=== PATIENT | male | born 1955 | race Caucasian/White ===

== ENCOUNTER 2018-04-03 01:38 | Inpatient (IN) | payer OTHER ==
[~2018-04-03] VITALS: Ht 172.7 cm; Wt 106.3 kg
[2018-04-03 02:52] LABS: BILIRUBIN,URINE NEGATIVE (NEGATIVE); CLARITY,URINE CLOUDY (CLEAR); COLOR,URINE STRAW (YELLOW); KETONES,URINE NEGATIVE (NEGATIVE); LEUKOCYTE ESTERASE ,URINE NEGATIVE (NEGATIVE); NITRITE,URINE NEGATIVE (NEGATIVE); PROTEIN,URINE DIPSTICK NEGATIVE (NEGATIVE); URINE UROBILINOGEN 0.2 mg/dL (0.2 - 1)
[2018-04-03 02:53] LABS: BACTERIA,URINE FEW /HPF; EPITHELIAL CELLS,URINE FEW /LPF; RBC,URINE >50 /HPF (0-5); RENAL EPITHELIAL CELLS,URINE FEW; TRANSITIONAL EPI CELLS,URINE FEW; WBC,URINE (MAN) 21-50 /HPF (0-5)
[2018-04-03 03:42] LABS: BASOPHILS % 0.3 % (0.0-1.0); EOSINOPHILS % 0.2 % (0.0-6.0); HEMATOCRIT 52.5 % (38.2-49.6); HEMOGLOBIN 17.2 g/dL (14.0-18.0); LYMPHOCYTES # (AUTO) 1.6 (1.0-3.2); LYMPHOCYTES % 13.5 % (18.0-39.1); MEAN CORPUSCULAR HGB CONC 32.8 g/dL (31-35); MEAN CORPUSCULAR VOLUME 91.6 fL (81-99); MONOCYTES # (AUTO) 0.7 (0.2-0.8); MONOCYTES % 5.8 % (4.4-11.3); NEUTROPHILS # (AUTO) 9.7 (2.1-6.9); NEUTROPHILS % 79.8 % (38.7-80.0); PLATELET COUNT 181 x10e3/uL (140-360); RED BLOOD COUNT 5.73 x10e6/uL (4.3-5.7); RED CELL DISTRIBUTION WIDTH 13.4 % (11.7-14.4)
[2018-04-03 03:52] LABS: INR 1.23; PARTIAL THROMBOPLASTIN TIME 28.6 seconds (23.8-35.5); PROTHROMBIN TIME 16.6 seconds (11.9-14.5)
[2018-04-03 03:59] LABS: ALBUMIN 3.7 g/dL (3.5-5.0); ALBUMIN/GLOBULIN RATIO 1.2 (0.8-2.0); CALCIUM 10.6 mg/dL (8.4-10.2); CREATININE, SERUM 1.66 mg/dL (0.72-1.25)
--- NOTE | 2018-04-03 04:40 | Diagnostic Imaging Report ---
EXAM: CT Abdomen and Pelvis WITHOUT contrast INDICATION: stone protocol, hematuria COMPARISON: None. TECHNIQUE: Abdomen and pelvis were scanned utilizing a multidetector helical scanner from the lung base to the pubic symphysis without administration of IV contrast. Absence of intravenous contrast decreases sensitivity for detection of focal lesions and vascular pathology. Coronal and sagittal reformations were obtained. Routine protocol was performed. IV CONTRAST: None ORAL CONTRAST: Water COMPLICATIONS: None RADIATION DOSE: Total DLP: 805.9 mGy*cm Estimated effective dose: (DLP x 0.015 x size factor) mSv Dose modulation, iterative reconstruction, and/or weight based adjustment of the mA/kV was utilized to reduce the radiation dose to as low as reasonably achievable. FINDINGS: LINES and TUBES: None. LOWER THORAX: Unremarkable HEPATOBILIARY: No focal hepatic lesions. No biliary ductal dilation. GALLBLADDER: No radio-opaque stones or sludge. No wall thickening. SPLEEN: No splenomegaly. PANCREAS: No focal masses or ductal dilatation. ADRENALS: Left adrenal 1.4 cm myelolipoma. No right adrenal nodules KIDNEYS/URETERS: Left kidney: Chronic appearing severe left hydronephrosis with transition at the ureteropelvic junction. There is left renal cortical thinning and atrophy. Mild left peripelvic stranding is noted. Thin linear 1.3 cm long 0.3 cm wide calcification along the posterior renal pelvis, adjacent to a possible triangular shaped 1.9 x 1.5 cm of thickening measuring 35 HU (series 3 image 97). Inferior pole 0.2 cm parenchymal calcification. Interval region 1.3 cm cyst. Right kidney: Right extrarenal pelvis. Superior pole nonobstructing 2 mm calculus. Right renal cysts measuring up to 2.4 cm. GI TRACT: No abnormal distention, wall thickening, or evidence of bowel obstruction. 3.4 cm duodenal diverticulum along the second segment. There are diverticula within the colon without evidence of diverticulitis. Appendix is normal. PELVIC ORGANS/BLADDER: Unremarkable. LYMPH NODES: No lymphadenopathy. VESSELS: There is mild atherosclerotic disease in the aorta and major arterial branches. PERITONEUM / RETROPERITONEUM: No free air or fluid. BONES: There are degenerative changes in the lumbar spine. SOFT TISSUES: Large indirect fat-containing bilateral inguinal hernias. Skin thickening in the left anterior abdominal wall. Fat-containing umbilical hernia. IMPRESSION: 1. Severe left hydronephrosis likely secondary to chronic UPJ obstruction. 2. Mild left peripelvic stranding may suggest possible pyelitis. Recommend correlation with urinalysis. 3. Soft tissue attenuating 1.9 cm area within the left renal pelvis. Given hematuria, this may represent clot or underlying urothelial lesion. Consider correlation with CT urogram. 4. Right nephrolithiasis. 5. Left adrenal myelolipoma. 6. Colonic diverticulosis. 7. Additional incidental findings as above. Signed by: DR. Larry Meeks MD on 04/03/2018 4:37 AM
[2018-04-03] MEDS ORDERED: DEXTROSE 50% SYRINGE 50 ML IV PRN (05:45)
[2018-04-03] MEDS ORDERED: ONDANSETRON HCL INJ 2 MG/ML VIAL IV PRN (05:45)
[2018-04-03] MEDS ORDERED: SODIUM CHLORIDE FLUSH 10 ML SYR INJ PRN (05:45)
[2018-04-03] MEDS: CEFTRIAXONE SOD 1 GM VIAL IV SCH (06:10)
--- OUTSIDE RECORDS SUMMARY | 2018-04-03 06:40 | XMS REPORT ---
Author Author [facility] Address Unknown Phone Unavailable Care Team Providers Care Field Spec Name Role Phone Tresa ESCAMILLA Unavailable Unavailable Problems This patient has no known problems. Allergies, Adverse Reactions, Alerts This patient has no known allergies or adverse reactions. Medications This patient has no known medications. Results Test Description Test Time Test Comments Text Results Atomic Results Result Comments CT ABDOMEN/PELVIS WO 2018-04-03 04:22:00 [place] [id number] Patient Name: HERNAN HODGE MR #: [id number] : 1955 Age/Sex: 62/M Req #: [id number] Adm Physician: Ordered by: BRUNO ESCAMILLA MD Report #: [id number] Location: ER Room/Bed: Procedure: [id number] CT/CT ABDOMEN/PELVIS WO Exam Date: 04/03/18 Exam Time: 0343 REPORT STATUS: Signed EXAM: CT Abdomen and Pelvis WITHOUT contrast I NDICATION: stone protocol, hematuria COMPARISON: None. TECHNIQUE: Abdomen and pelvis were scanned utilizing a multidetector helical scanner from the lung base to the pubic symphysis without administration of IV contrast. Absence of intravenous contrast decreases sensitivity for detection of focal lesions and vascular pathology. Coronal and sagittal reformations were obtained. Routine protocol was performed. IV CONTRAST: None ORAL CONTRAST: Water COMPLICATIONS: None RADIATION DOSE: Total DLP: 805.9 mGy*cm Estimated effective dose: (DLP x 0.015 x size factor) mSv Dose modulation, iterative reconstruction, and/or weight based adjustment of the mA/kV was utilized to reduce the radiation dose to as low as reasonably achievable. FINDINGS: LINES and TUBES: None. LOWER THORAX: Unremarkable HEPATOBILIARY: No focal hepatic lesions. No biliary ductal dilation. GALLBLADDER: No radio-opaque stones or sludge. No wall thickening. SPLEEN: No splenomegaly. PANCREAS: No focal masses or ductal dilatation. ADRENALS: Left adrenal 1.4 cm myelolipoma. No right adrenal nodules KIDNEYS/URETERS: Left kidney: Chronic appearing severe left hydronephrosis with transition at the ureteropelvic junction. There is left renal cortical thinning and atrophy. Mild left peripelvic stranding is noted. Thin linear 1.3 cm long 0.3 cm wide calcification along the posterior renal pelvis, adjacent to a possible triangular shaped 1.9 x 1.5 cm of thickening measuring 35 HU (series 3 image 97). Inferior pole 0.2 cm parenchymal calcification. Interval region 1.3 cm cyst. Right kidney: Right extrarenal pelvis. Superior pole nonobstructing 2 mm calculus. Right renal cysts measuring up to 2.4 cm. GI TRACT: No abnormal distention, wall thickening, or evidence of bowel obstruction. 3.4 cm duodenal diverticulum along the second segment. There are diverticula within the colon without evidence of diverticulitis. Appendix is normal. PELVIC ORGANS/BLADDER: Unremarkable. LYMPH NODES: No lymphadenopathy. VESSELS: There is mild atherosclerotic disease in the aorta and major arterial branches. PERITONEUM / RETROPERITONEUM: No free air or fluid. BONES: There are degenerative changes in the lumbar spine. SOFT TISSUES: Large indirect fat-containing bilateral inguinal hernias. Skin thickening in the left anterior abdominal wall. Fat-containing umbilical hernia. IMPRESSION: 1. Severe left hydronephrosis likely secon rebel to chronic UPJ obstruction. 2. Mild left peripelvic stranding may suggest possible pyelitis. Recommend correlation with urinalysis. 3. Soft tissue attenuating 1.9 cm area within the left renal pelvis. Given hematuria, this may represent clot or underlying urothelial lesion. Consider correlation with CT urogram. 4. Right nephrolithiasis. 5. Left adrenal myelolipoma. 6. Colonic diverticulosis. 7. Additional incidental findings as above. Signed by: DR. Larry Meeks MD on 04/03/2018 4:37 AM Dictated By: LARRY MEEKS MD 6 Transcribed By: GILDARDO on 04/03/18436 COPY TO: BRUNO ESCAMILLA MD
[2018-04-03] MEDS ORDERED: FARXIGA PO (07:10)
[2018-04-03] MEDS ORDERED: TAMSULOSIN HCL0.4 MG PO (07:10)
[2018-04-03] MEDS ORDERED: RANITIDINE HCL150 MG PO (07:10)
[2018-04-03] MEDS ORDERED: WARFARIN SODIUM5 MG PO (07:10)
[2018-04-03] MEDS ORDERED: LISINOPRIL2.5 MG PO (07:10)
[2018-04-03] MEDS ORDERED: ATORVASTATIN CA10 MG PO (07:10)
[2018-04-03] MEDS ORDERED: ALLOPURINOL300 MG PO (07:10)
[2018-04-03] MEDS ORDERED: NOVOLOG MI100 UNIT/1 SQ (07:10)
[2018-04-03] MEDS ORDERED: GABAPENTIN100 MG PO (07:10)
[2018-04-03] MEDS: INSULIN REGULAR, HUMAN 100 UNIT/1 ML 3ML VIAL SQ SCH ×4 (08:29→21:05)
--- NOTE | 2018-04-03 11:21 | History and Physical ---
This patient came into the hospital with rectal bleeding. HISTORY OF PRESENT ILLNESS: This is Mr. Torito Mejia with a history of slight mental retardation. He was in his usual state of health until the patient started to have streaking of blood on the toilet paper and he felt weak and dizzy. The patient came in, was evaluated, and found to have urinary tract infection, warfarin toxicity, and admitted for the same. PAST MEDICAL HISTORY 1. History of hypertension. 2. History of diabetes mellitus. 3. History of chronic kidney disease. 4. History of DVT. 5. History of gout. MEDICATIONS: Medications the patient takes are atorvastatin 10 mg, allopurinol 300 mg, gabapentin 100 mg 3 times a day, NovoLog mix 70/30, 40 units b.i.d., lisinopril 2.5 mg, ranitidine 150 mg, tamsulosin 0.4 mg, warfarin 5 mg daily, and fluoxetine 10 mg daily. SURGICAL HISTORY: Noncontributory. REVIEW OF SYSTEMS: No chest pain. No shortness of breath. Positive for weakness. Positive for rectal bleeding. No nausea, vomiting, or diarrhea. No hematochezia. No hematemesis. Positive for rectal bleeding, but no hematochezia. PHYSICAL EXAMINATION VITAL SIGNS: Temperature is 97.9, pulse of 93, respirations of 18, blood pressure 141/86. HEENT: Normocephalic and atraumatic. Pupils are reactive to light and accommodation. CVS: S1, S2 are normal. Regular rate and rhythm. ABDOMEN: Nontender and nondistended. EXTREMITIES: No clubbing. No cyanosis. No edema. LABORATORY VALUES: Initial white count is 12,000, hemoglobin is 17.2, with a hematocrit of 52.5. Neutrophil count is 79.8. Chemistries; sodium of 135, potassium of 4.0, BUN of 35, creatinine of 1.66. Glucose is 336 with a calcium of 10.6. Urine was cloudy, nitrites negative, leukocyte esterase negative, showed rbcs 150 and white count 21 to 50. Coags; INR was 1.23. IMAGING STUDIES: Abdominal CT and pelvis was done. It shows severe left hydronephrosis likely secondary to chronic UPJ junction obstruction, left peripelvic stranding suggest pyelitis, soft tissue attenuation of the left renal pelvis, right nephrolithiasis, left adrenal myelolipoma, chronic diverticulosis in addition. ASSESSMENT AND PLAN Rectal bleeding secondary to Coumadin toxicity. INR was 1.2. We will continue monitoring his labs. Pyelitis and hydronephrosis. A consult with has been done for the hydronephrosis. Hypertension. Continue his home medications. Diabetes. Continue with same insulin. Plan would be to keep the patient inpatient and also culture of the urine and possible intervention by Urology. Further recommendation per clinical course. We will continue monitoring the patient's In's and Out's and also his electrolytes. Job#: [id number] GISSELLE
--- NOTE | 2018-04-03 13:35 | NUR ---
ARRIVED VIA WC FROM ER, [id number], RA, DENIES PAIN AT THIS TIME, ORIENTED TO ROOM AND CALL LIGHT SYSTEM , CALL LIGHT WITHIN REACH, MOM AT SIDE
--- NOTE | 2018-04-03 14:02 | NUR ---
MD Marta TOLENTINO INTO SEE PT, DISCUSSED POC
[2018-04-03] MEDS ORDERED: GABAPENTIN 100 MG CAP PO SCH (15:00)
[2018-04-03 15:07] VITALS: BP 142/65
[2018-04-03 15:12] VITALS: BP 142/65
--- NOTE | 2018-04-03 15:52 | NUR ---
SPOKE WITH FAMILY AND PT , CLARIFIED HOME MEDICATIONS, EMAR NOTED
--- NOTE | 2018-04-03 16:21 | Diagnostic Imaging Report ---
Abdomen/KUB INDICATION: ^FOLLOW UP WITH CT ^[id number] ^1550 ^Y COMPARISON: CT abdomen/pelvis 0345 hours. FINDINGS: Supine image obtained at 1554 hours. Medical Devices: None Bowel: Unremarkable bowel gas pattern. No dilated bowel loops. No pneumatosis Calcifications: None over the renal shadows or along the expected course of the ureters. A single left pelvic calcific age and corresponds to a phlebolith on CT. Organomegaly: None Lung bases: Clear Bones: Stable degenerative changes of the lumbar spine. IMPRESSION: No radiographic evidence of renal or ureteral calculus. Unremarkable bowel gas pattern. Signed by: Dr. More Jaramillo MD on 04/03/2018 4:17 PM
[2018-04-03 16:32] VITALS: BP 156/77
[2018-04-03] MEDS ORDERED: FAMOTIDINE 20 MG TAB PO SCH (17:00)
[2018-04-03] MEDS: INSULIN ASPART 70/30 100 UNITS/ML VIAL SC SCH (17:00)
--- NOTE | 2018-04-03 18:11 | NUR ---
TOLERATED DINNER, PT DID NOT TAKE SLIDING SCALE AT THIS TIME, BLOOD GLUCOSE WAS 184, PT WAS ADMINISTERED SCHEDULED INSULIN, CALL LIGHT WITHIN REACH
--- NOTE | 2018-04-03 19:41 | Consultation ---
DATE OF CONSULTATION: April 03, 2018 INITIAL VISIT CONSULTATION SERVICE: Urology. ATTENDING PHYSICIAN: Dr. Charles Anthony. HISTORY OF PRESENT ILLNESS: This is a 62-year-old patient who was admitted to the hospital through the emergency room. He did have some what appeared to be GI bleeding. Patient does not complain about any significant pain at the present time. Does have symptoms of some frequency of urination. REVIEW OF SYSTEMS: Twelve systems reviewed. Patient had mild dizziness. No cough. No difficulty breathing or voiding. He did have no hematuria. All other 12 systems negative. PAST MEDICAL HISTORY: Significant for; 1. Obesity. 2. Diabetes mellitus. 3. Renal failure. 4. Gout. FAMILY HISTORY: Hypertension and diabetes mellitus. SOCIAL HISTORY: Never smoked. No use of alcohol or illicit drugs. PHYSICAL EXAMINATION GENERAL: Patient appeared to be awake and alert. VITALS: Blood pressure 140/85, pulse 90, respirations 18, temperature 97.8. HEENT: Head symmetric. Eyes normal movement. NECK: No JVD. CHEST: Clear. HEART: Regular. ABDOMEN: Soft. EXTERNAL GENITALIA: Does have bilateral hydrocele. Patient is uncircumcised. EXTREMITIES: Lower extremities moves all. SKIN: Unremarkable. LABS: CT scan of the abdomen and pelvis that was done suggests left hydronephrosis, possible ureteropelvic junction obstruction and right nephrolithiasis. Hemoglobin 17.2, white count 12.1. BUN 35, creatinine 1.66, chloride 98, sodium 135, potassium 4, CO2 of 27. INR 1.23. IMPRESSION 1. Left hydronephrosis, possible ureteropelvic junction obstruction. 2. Right nephrolithiasis. 3. Hematuria. 4. Left adrenal lipoma, small. 5. Bilateral hydrocele. 6. Obesity. 7. Diabetes mellitus. 8. Gout. 9. Renal failure. PLAN: Patient will need further assessment with cystoscopy and retrograde as well as management of stone. We will follow with you. Thank you for the consult. Job#: [id number] KATE
[2018-04-03 20:00] VITALS: BP 140/85
[2018-04-03] MEDS: GABAPENTIN 100 MG CAP PO SCH (21:04)
[2018-04-03] MEDS: FAMOTIDINE 20 MG TAB PO SCH (21:04)
[2018-04-03] MEDS: ATORVASTATIN 10 MG TAB PO SCH (21:04)
[2018-04-03] MEDS: TAMSULOSIN HCL 0.4 MG CAP PO SCH (21:04)
[2018-04-03 22:00] VITALS: BP 140/85
[2018-04-04] VITALS (7 sets, daily range): BP systolic 116–158; BP diastolic 56–82
[2018-04-04] MEDS: CEFTRIAXONE SOD 1 GM VIAL IV SCH (05:36)
[2018-04-04 06:39] LABS: BASOPHILS # (AUTO) 0.1 (0.0-0.1); BASOPHILS % 0.6 % (0.0-1.0); EOSINOPHILS # (AUTO) 0.3 (0.0-0.4); EOSINOPHILS % 3.5 % (0.0-6.0); HEMOGLOBIN 15.8 g/dL (14.0-18.0); LYMPHOCYTES # (AUTO) 2.9 (1.0-3.2); LYMPHOCYTES % 34.6 % (18.0-39.1); MEAN CORPUSCULAR HEMOGLOBIN 29.5 pg (28-32); MEAN CORPUSCULAR HGB CONC 32.2 g/dL (31-35); MEAN CORPUSCULAR VOLUME 91.4 fL (81-99); MONOCYTES # (AUTO) 0.7 (0.2-0.8); MONOCYTES % 8.8 % (4.4-11.3); NEUTROPHILS # (AUTO) 4.3 (2.1-6.9); NEUTROPHILS % 52.1 % (38.7-80.0); PLATELET COUNT 152 x10e3/uL (140-360); RED BLOOD COUNT 5.36 x10e6/uL (4.3-5.7); RED CELL DISTRIBUTION WIDTH 13.4 % (11.7-14.4)
[2018-04-04 06:56] LABS: ALANINE AMINOTRANSFERASE 21 IU/L (0-55); ALBUMIN 3.2 g/dL (3.5-5.0); ALBUMIN/GLOBULIN RATIO 1.2 (0.8-2.0); ALKALINE PHOSPHATASE 78 IU/L (40-150); ANION GAP 12.6 mmol/L (8-16); BLOOD UREA NITROGEN 27 mg/dL (7-26); BUN/CREATININE RATIO 23 (6-25); CARBON DIOXIDE 25 mmol/L (22-29); CHLORIDE 103 mmol/L (98-107); CREATININE, SERUM 1.19 mg/dL (0.72-1.25); EST GLOMERULAR FILTRATION RATE > 60 ML/MIN (60-); GLUCOSE 131 mg/dL (74-118); POTASSIUM 3.6 mmol/L (3.5-5.1); SODIUM 137 mmol/L (136-145)
[2018-04-04] MEDS: INSULIN REGULAR, HUMAN 100 UNIT/1 ML 3ML VIAL SQ SCH ×4 (07:30→21:00)
--- NOTE | 2018-04-04 08:02 | Progress Note ---
DATE: SUBJECTIVE: The patient is here for rectal bleeding, also CT scan finding of UP junction obstruction with hydronephrosis. Currently, the patient is asymptomatic. No signs of rectal bleeding noted. PHYSICAL EXAMINATION GENERAL: The patient has memory lapses. VITAL SIGNS: Temperature is 97.1, pulse of 79, respirations of 18, blood pressure 147/80, with a pulse oximetry of 98%. HEENT: Normocephalic and atraumatic. CVS: S1 and S2 normal. Regular rate and rhythm. ABDOMEN: Nontender and nondistended. EXTREMITIES: No clubbing, no cyanosis, and no edema. LABORATORY VALUES: White count is now down from 12,000 to 8.3. Chemistries; sodium of 137, potassium of 3.6, BUN of 27, and creatinine of 1.9. Glucose is running at the 200s. MEDICATIONS: The patient is on Rocephin 1 g q.12 hours, tamsulosin, gabapentin, famotidine, atorvastatin, insulin, warfarin, lisinopril, allopurinol, and Zofran. ASSESSMENT AND PLAN 1. Rectal bleeding secondary to Coumadin toxicity. We will continue monitoring his INRs, pyelitis, and hydronephrosis. The patient will need a retrograde and probable stone retrieval. 2. Hypertension. Continue on CV medications. 3. Diabetes. Continue with insulin and also insulin sliding scale. 4. Patient also has history of deep venous thrombosis. We will continue with his warfarin for now until Urology decides to do retrograde, we will stop at that time. Further recommendation per clinical course. We will continue monitoring the patient and continue him on Rocephin for his urinary tract infection. The patient's cultures are still pending. Job#: [id number] GISSELLE
[2018-04-04] MEDS: WARFARIN SOD 5 MG TAB PO SCH (08:32)
[2018-04-04] MEDS: FAMOTIDINE 20 MG TAB PO SCH ×2 (08:33→21:45)
[2018-04-04] MEDS: LISINOPRIL 2.5 MG TAB PO SCH (08:33)
[2018-04-04] MEDS: ALLOPURINOL 300 MG TAB PO SCH (08:33)
[2018-04-04] MEDS: GABAPENTIN 100 MG CAP PO SCH ×2 (08:33→21:45)
[2018-04-04] MEDS: INSULIN ASPART 70/30 100 UNITS/ML VIAL SC SCH ×2 (08:43→17:49)
[2018-04-04] MEDS ORDERED: TAMSULOSIN HCL 0.4 MG CAP PO SCH (09:00)
--- NOTE | 2018-04-04 19:10 | NUR ---
Completed bedside rounds with morning nurse. Sitting up in bed. Pt alert to name. Denies pain at this time. No acute distress noted.
[2018-04-04] MEDS: ATORVASTATIN 10 MG TAB PO SCH (21:45)
[2018-04-04] MEDS: TAMSULOSIN HCL 0.4 MG CAP PO SCH (21:45)
[2018-04-05 01:05] VITALS: BP 116/56
[2018-04-05 04:00] VITALS: BP 118/55
[2018-04-05] MEDS: CEFTRIAXONE SOD 1 GM VIAL IV SCH (06:00)
[2018-04-05] MEDS ORDERED: SODIUM CHLORIDE 0.9% 50ML 50 ML ONE (06:05)
--- NOTE | 2018-04-05 07:00 | NUR ---
SHIFT REPORT RECEIVED FROM NIGHT RN. PT DENIES NEEDS AT THIS TIME.
--- NOTE | 2018-04-05 07:07 | Progress Note ---
DATE: SUBJECTIVE: Patient is here for UP junction obstruction and also rectal bleeding. Currently afebrile, asymptomatic. No complaints. Patient has baseline mental retardation. MEDICATIONS: Include allopurinol, atorvastatin, Rocephin, famotidine, gabapentin, insulin, lisinopril, tamsulosin, and warfarin. PHYSICAL EXAMINATION: VITAL SIGNS: Temperature is 96.8, pulse of 84, respiration of 18, blood pressure is 118/55. HEENT: Normocephalic, atraumatic. Pupils are reactive to light and accommodation. CVS: S1, S2 normal. Regular rate and rhythm. ABDOMEN: Nontender, nondistended. EXTREMITIES: No clubbing, no cyanosis, no edema. LABORATORY VALUES: From yesterday all normal. Chemistries: The glucose has been trending normal. Coags: INR is 1.23 on arrival, will do another one today. MICROBIOLOGY: Urine culture, no growth in last 18 to 24 hours. IMAGING: As mentioned by UP junction obstruction. ASSESSMENT: 1. Abdominal pain. 2. Rectal bleeding. 3. History of deep venous thrombosis. 4. History of hypertension. 5. History of diabetes mellitus. PLAN: 1. To continue monitor the patient's INR. 2. Urology has been consulted. Patient might have a retrograde today. 3. Diabetes. Continue with insulin and diabetic medication. 4. Hypertension. Continue on CV medications. 5. For further recommendation, will talk to urology if they plan to do the retrograde today. If not, patient can be discharged home stable from medicine's standpoint. Patient is also on Rocephin 1 g q.12h. for urinary tract infection. Job#: [id number]
[2018-04-05] MEDS: INSULIN REGULAR, HUMAN 100 UNIT/1 ML 3ML VIAL SQ SCH ×2 (07:30→12:19)
[2018-04-05 08:00] VITALS: BP 118/55
[2018-04-05] MEDS: WARFARIN SOD 5 MG TAB PO SCH (08:32)
[2018-04-05] MEDS: GABAPENTIN 100 MG CAP PO SCH (08:32)
[2018-04-05] MEDS: FAMOTIDINE 20 MG TAB PO SCH (08:32)
[2018-04-05] MEDS: ALLOPURINOL 300 MG TAB PO SCH (08:33)
[2018-04-05] MEDS: LISINOPRIL 2.5 MG TAB PO SCH (08:33)
[2018-04-05] MEDS: INSULIN ASPART 70/30 100 UNITS/ML VIAL SC SCH (08:33)
[2018-04-05 08:37] VITALS: BP 146/68
--- NOTE | 2018-04-05 10:21 | NUR ---
TALKED TO RENEE AT DR. JARAMILLO OFFICE AND OK FROM HIS STAND POINT FOR PT TO DISCHARGE HOME. THAT'S WHAT NOTE LOOKED LIKE IN CHART AND NOW VERIFIED.
[2018-04-05 12:35] VITALS: BP 126/66
== END 2018-04-05 13:39 | disposition home or self-care (01) | DRG 378 ==
LOC: ER 01:38 → ERHOLD 06:38 → MED/SURG 13:58
PROVIDERS: ADMIT Family Medicine; ATTEND Family Medicine
DX: K62.5 Hemorrhage of anus and rectum (principal); N39.0 Urinary tract infection, site not specified; N13.6 Pyonephrosis; Z86.718 Personal history of other venous thrombosis and embolism; Z79.01 Long term (current) use of anticoagulants; T45.515A Adverse effect of anticoagulants, initial encounter; M1A.9XX0 Chronic gout, unspecified, without tophus (tophi); F70 Mild intellectual disabilities; D17.79 Benign lipomatous neoplasm of other sites; N43.3 Hydrocele, unspecified; E66.9 Obesity, unspecified; Z68.35 Body mass index [BMI] 35.0-35.9, adult; R35.0 Frequency of micturition; K57.90 Diverticulosis of intestine, part unspecified, without perforation or abscess without bleeding; I12.9 Hypertensive chronic kidney disease with stage 1 through stage 4 chronic kidney disease, or unspecified chronic kidney disease; N18.9 Chronic kidney disease, unspecified
CPT/HCPCS: 36415; 74018; 74176; 80053; 81001; 82270; 82948; 85025; 85610; 85730; 87086; 99284; J0696; J1815

== ENCOUNTER → 2018-08-20 | Outpatient (CLI) | payer OTHER ==
[~2018-08-20] MED LIST: ALLOPURINOL300 MG PO; ATORVASTATIN CA10 MG PO; FARXIGA PO; GABAPENTIN100 MG PO; LISINOPRIL2.5 MG PO; NOVOLOG MI100 UNIT/1 SQ; RANITIDINE HCL150 MG PO; TAMSULOSIN HCL0.4 MG PO; WARFARIN SODIUM5 MG PO
--- NOTE | 2018-08-20 10:57 | Diagnostic Imaging Report ---
EXAMINATION: CT of the abdomen and pelvis without contrast. TECHNIQUE: Spiral CT images of the abdomen and pelvis were performed from the lung bases to the lesser trochanters. No intravenous contrast was given per renal stone protocol. Coronal and sagittal reformatted images were obtained. COMPARISON: 04/03/2018 CLINICAL HISTORY:Gross hematuria DISCUSSION: ABSENCE OF INTRAVENOUS CONTRAST DECREASES SENSITIVITY FOR DETECTION OF FOCAL LESIONS AND VASCULAR PATHOLOGY. ABDOMEN/PELVIS: LOWER THORAX: Groundglass opacity compatible with subsegmental atelectasis in the dependent lower lobes. HEPATOBILIARY:No focal hepatic lesions. No biliary ductal dilation. The gallbladder is normal. SPLEEN: No splenomegaly. PANCREAS: No focal masses or ductal dilatation. ADRENALS: Unchanged macroscopic fat-containing nodule in the lateral limb of the left adrenal. Right adrenal is unremarkable. KIDNEYS/URETERS: Unchanged marked left hydronephrosis with cortical thinning and abrupt transition to a normal caliber ureter at the UPJ (series 3 image 118. Small calculi in the left collecting system are also unchanged, as is a 1.5 cm hyperdense focus in the dependent portion of the collecting system (series 3 image 90). Right upper pole exophytic and parenchymal cysts are unchanged. Right extrarenal pelvis. 2 mm nonobstructing upper pole calculus unchanged.. PELVIC ORGANS/BLADDER: The urinary bladder is well distended and unremarkable. PERITONEUM/RETROPERITONEUM: No free air or fluid. LYMPH NODES: No pelvic sidewall, retroperitoneal, or mesenteric lymphadenopathy. VESSELS: Limited evaluation without intravenous contrast. Atherosclerotic calcification of the abdominal aorta and iliac arterial systems without aneurysmal dilatation. GI TRACT: The large bowel shows no distention or wall thickening. Scattered sigmoid diverticula without inflammatory change. Appendix is normal. Diverticulum projecting from the second portion of the duodenum unchanged. BONES AND SOFT TISSUES: Fat-containing umbilical and bilateral inguinal hernias. Otherwise no focal soft tissue abnormalities. No osseous destructive lesions. Degenerative changes of the hips, symphysis pubis, SI joints, and lumbar spine. IMPRESSION: Unchanged severe left hydronephrosis with cortical thinning related to chronic ureteropelvic junction obstruction. Hyperattenuating 1.9 cm focus in the dependent left renal pelvis is grossly unchanged. This may represent blood products or urothelial neoplasm as previously discussed. CT urogram may be of benefit for further evaluation. Unchanged nonobstructing right upper pole calculus. Left adrenal myelolipoma unchanged. Large bowel diverticulosis without findings of diverticulitis. Atherosclerotic vascular disease. Signed by: Dr. Yunior Mcgill M.D. on 08/20/2018 10:54 AM
== END ==
LOC: CT 09:44
PROVIDERS: ATTEND Urology
DX: R31.0 Gross hematuria (principal)
CPT/HCPCS: 74176

== ENCOUNTER 2019-06-07 16:29 | Emergency (ER) | payer OTHER ==
[~2019-06-07] VITALS: Ht 172.7 cm; Wt 106.1 kg
[2019-06-07] MEDS ORDERED: SODIUM CHLORIDE 0.9% 1000ML 1,000 ML IV STA (16:48)
--- NOTE | 2019-06-07 17:52 | Diagnostic Imaging Report ---
EXAMINATION: CHEST SINGLE (PORTABLE) COMPARISON: CT abdomen 08/20/2018, abdomen x-ray 04/03/2018 INDICATION: Swollen leg, ^DVT DISCUSSION: Frontal view of the chest obtained at 1733 hours. HEART AND MEDIASTINUM: The heart is normal in size. The descending thoracic aorta is tortuous LINES: None. LUNGS: The lungs are well inflated and clear. No pneumonia or pulmonary edema. PLEURA: No pleural effusion or pneumothorax. BONES AND SOFT TISSUES: No focal osseous lesion. The soft tissues are normal. IMPRESSION: No acute cardiopulmonary disease. Signed by: Dr. More Jaramillo MD on 06/07/2019 5:49 PM
[2019-06-07] MEDS ORDERED: RIVAROXABAN 15 MG TABLET PO ONE (18:00)
[2019-06-07 18:13] LABS: BASOPHILS # (AUTO) 0.1 (0.0-0.1); BASOPHILS % 0.5 % (0.0-1.0); EOSINOPHILS # (AUTO) 0.2 (0.0-0.4); EOSINOPHILS % 1.2 % (0.0-6.0); HEMATOCRIT 49.9 % (38.2-49.6); LYMPHOCYTES # (AUTO) 2.4 (1.0-3.2); LYMPHOCYTES % 18.7 % (18.0-39.1); MEAN CORPUSCULAR HEMOGLOBIN 28.6 pg (28-32); MEAN CORPUSCULAR HGB CONC 32.1 g/dL (31-35); MEAN CORPUSCULAR VOLUME 89.3 fL (81-99); NEUTROPHILS # (AUTO) 9.3 (2.1-6.9); NEUTROPHILS % 71.1 % (38.7-80.0); PLATELET COUNT 217 x10e3/uL (140-360); RED BLOOD COUNT 5.59 x10e6/uL (4.3-5.7); RED CELL DISTRIBUTION WIDTH 14.4 % (11.7-14.4)
[2019-06-07 18:28] LABS: INR 1.06; PROTHROMBIN TIME 14.5 seconds (11.9-14.5)
[2019-06-07 18:29] LABS: PARTIAL THROMBOPLASTIN TIME 32.3 seconds (23.8-35.5)
[2019-06-07 18:35] LABS: ALANINE AMINOTRANSFERASE 23 IU/L (0-55); ALBUMIN 3.5 g/dL (3.5-5.0); ALBUMIN/GLOBULIN RATIO 1.1 (0.8-2.0); ALKALINE PHOSPHATASE 108 IU/L (40-150); ANION GAP 11.4 mmol/L (8-16); BLOOD UREA NITROGEN 42 mg/dL (7-26); BUN/CREATININE RATIO 24 (6-25); CALCIUM 11.1 mg/dL (8.4-10.2); CARBON DIOXIDE 28 mmol/L (22-29); CHLORIDE 104 mmol/L (98-107); CREATINE KINASE 42 IU/L (30-200); CREATININE, SERUM 1.74 mg/dL (0.72-1.25); EST GLOMERULAR FILTRATION RATE 40 ML/MIN (60-); GLUCOSE 178 mg/dL (74-118); MAGNESIUM 1.4 MG/DL (1.3-2.1); POTASSIUM 4.4 mmol/L (3.5-5.1); SODIUM 139 mmol/L (136-145)
[2019-06-07 19:21] LABS: KETONES,URINE NEGATIVE (NEGATIVE); LEUKOCYTE ESTERASE ,URINE NEGATIVE (NEGATIVE); NITRITE,URINE NEGATIVE (NEGATIVE); PROTEIN,URINE DIPSTICK 1+ (NEGATIVE)
[2019-06-07 19:22] LABS: BILIRUBIN,URINE NEGATIVE (NEGATIVE); URINE UROBILINOGEN 0.2 mg/dL (0.2 - 1)
[2019-06-07 19:24] LABS: BACTERIA,URINE MODERATE /HPF; CLARITY,URINE CLOUDY (CLEAR); COLOR,URINE STRAW (YELLOW)
[2019-06-07 19:25] LABS: AMORPHOUS SEDIMENT,URINE FEW (FEW); EPITHELIAL CELLS,URINE FEW /LPF
[2019-06-08 05:34] VITALS: BP 138/84
== END 2019-06-07 20:00 | disposition home or self-care (01) ==
LOC: ER 16:29
DX: M79.661 Pain in right lower leg (principal); I82.411 Acute embolism and thrombosis of right femoral vein; I10 Essential (primary) hypertension; E11.9 Type 2 diabetes mellitus without complications; N18.9 Chronic kidney disease, unspecified
CPT/HCPCS: 36415; 71045; 80053; 81001; 82550; 82553; 83735; 83880; 84484; 85025; 85610; 85730; 93005

== ENCOUNTER → 2019-06-07 | Outpatient (CLI) | payer OTHER | LOC: RAD 15:36 | PROVIDERS: ATTEND Family Medicine | DX: R60.0 Localized edema (principal); I82.412 Acute embolism and thrombosis of left femoral vein; I82.432 Acute embolism and thrombosis of left popliteal vein | CPT/HCPCS: 93971 ==

== ENCOUNTER 2019-08-15 17:42 | Observation (INO) | payer OTHER ==
[~2019-08-15] VITALS: Ht 175.3 cm; Wt 107.0 kg
--- OUTSIDE RECORDS SUMMARY | 2019-08-15 17:46 | XMS REPORT ---
Author Author [facility] t Organization [facility] Address [address] [facility]. 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 Name Role Phone MARLA OSORIO MD PCP Breezy HACKETT Attphys Unavailable ARAVIND KASPER Attphys Unavailable Raymond PIZARRO Attphys Unavailable Raymond PIZARRO Admphys Unavailable Problems Condition Name Condition Details Condition Category Status Onset Date Resolution Date Last Treatment Date Treating Clinician Comments Source Diabetes mellitus Diabetes Problem Active [facility] Hematuria Hematuria Problem Active [facility] Hydronephrosis of left kidney Hydronephrosis, left Problem Active [facility] Urinary tract infection UTI (urinary tract infection) Problem Active [facility] Allergies, Adverse Reactions, Alerts Allergy Name Allergy Type Status Severity Reaction(s) Onset Date Inacti ve Date Treating Clinician Comments Source shrimp Allergy to Substance Active Mild 2018-04-03 00:00:00 [facility] Iodinated Contrast Media Allergy to Substance Active Mild 2018-04-03 00:00:00 [facility] Medications Ordered Medication Name Filled Medication Name Start Date Stop Da te Current Medication? Ordering Clinician Indication Dosage Frequency Signature (SIG) Comments Components Source Allopurinol 300 Mg Tablet Allopurinol 300 Mg Tablet Yes 300 Daily [facility] Atorvastatin Calcium 10 Mg Tablet Atorvastatin Calcium 10 Mg Tablet Yes 10 Bedtime [facility] Farxiga 10 Tab Farxiga 10 Tab Yes 10 Daily [facility] Gabapentin 100 Mg Capsule Gabapentin 100 Mg Capsule Yes 100 Every 12 Hours [facility] Insuln Asp Prt/Insulin Aspart (Novolog M ix 70-30 Flexpen Syrn) 100 Unit/1 Ml Insuln.pen Insuln Asp Prt/Insulin Aspart (Novolog M ix 70-30 Flexpen Syrn) 100 Unit/1 Ml Insuln.pen Yes 40 Twice Daily With Meals [facility] Lisinopril 2.5 Mg Tablet Lisinopril 2.5 Mg Tablet Yes 5 Daily [facility] Ranitidine Hcl 150 Mg Tablet Ranitidine Hcl 150 Mg Tablet Y es 150 Every 12 Hours [facility] Tamsulosin Hcl 0.4 Mg Cap.er.24h Tamsulosin Hcl 0.4 Mg Cap.er.24h Yes .4 Bedtime [facility] Warfarin Sodium (Coumadin) 5 Mg Tablet Warfarin Sodium (Coumadin ) 5 Mg Tablet Yes 5 Daily [facility] Procedures Procedure Date / Time Performed Performing Clinician [facility] e CT of abdomen and pelvis without contrast 2018-08-20 00:00:00 ARAVIND CHAMPION [facility] Encounters Start Date/Time End Date/Time Encounter Type Admission Type Attendi [facility] Facility Care Department Encounter ID Source 2019-06-07 16:29:00 2019-06-07 20:00:00 Departed Emergency Room 1 JUAN HACKETT [facility] [id number] [facility] 2019-06-07 15:36:00 2019-06-07 15:36:00 Registered Clinic [facility] [id number] [facility] 2018-08-20 09:44:00 2018-08-20 09:44:00 Registered Clinic 3 ARAVIND KASPER [facility] [id number] [facility] 2018-04-03 06:38:00 2018-04-05 13:39:00 Discharged Inpatient 1 ULICES PIZARRO [facility] [id number] [facility] Results Test Description Test Time Test Comments Results Result Comments Source Urine Color 2019-06-07 19:25:00 Test Item Urine Color (test code = 5778-6) STRAW YELLOW [facility] Kdenfvz0969-21-88 19:25:00* Test Item Value Reference Range Interpretation Comments Urine Clarity (test code = 99827-9) CLOUDY CLEAR [facility] Specific Jatccgl1039-07-19 19:25:00 * Test Item Value Reference Range Interpretation Comments Urine Specific [place] (test code = 5811-5) 1.020 1.010-1.02 5 [facility] [id number] 19:25:00* Test Item Value Reference Range Interpretation Comments Urine pH (test code = 72389-7) 5.5 5-7 [facility] Leukocyte Scbqlrtd2207-61-18 19:25:00* Test Item Value Reference Range Interpretation Comments Urine Leukocyte Esterase (test code = 5799-2) NEGATIVE NEGATIVE [facility] Cgqfbls2820-45-66 19:25:00* Test Item Value Reference Range Interpretation Comments Urine Nitrite (test code = 99689-6) NEGATIVE NEGATIVE [facility] Jawxjvp2296-07-76 19:25:00* Test Item Value Reference Range Interpretation Comments Urine Protein (test code = 5804-0) 1+ NEGATIVE [facility] Glucose (UA)2019-06-07 19:25:00* Test Item Value Reference Range Interpretation Comments Urine Glucose (UA) (test code = 2349-9) NEGATIVE NEGATIVE [facility] Xxgajyd5825-93-57 19:25:00* Test Item Value Reference Range Interpretation Comments Urine Ketones (test code = 19209-9) NEGATIVE NEGATIVE [facility] Ltaecelvrbxe1334-46-51 19:25:00* Test Item Value Reference Range Interpretation Comments Urine Urobilinogen (test code = 23203-6) 0.2 0.2-1 [facility] Tgejwepgr2980-99-05 19:25:00* Test Item Value Reference Range Interpretation Comments Urine Bilirubin (test code = 1978-6) NEGATIVE NEGATIVE [facility] Pqgkq5151-44-17 19:25:00* Test Item Value Reference Range Interpretation Comments Urine Blood (test code = 66368-7) NEGATIVE NEGATIVE [facility] [id number] 19:25:00* Test Item Value Reference Range Interpretation Comments Urine WBC (test code = 5821-4) 6-10 0-5 [facility] [id number] 19:25:00* Test Item Value Reference Range Interpretation Comments Urine RBC (test code = 38798-2) 11-20 0-5 [facility] Wiamgmpj0272-55-63 19:25:00* Test Item Value Reference Range Interpretation Comments Urine Bacteria (test code = 07700-8) MODERATE NONE [facility] Epithelial Pemcy4045-72-58 19:25:00 * Test Item Value Reference Range Interpretation Comments Urine Epithelial Cells (test code = 52725-2) FEW NONE [facility] Amorphous Rpsqjbus6965-88-42 19:25:00* Test Item Value Reference Range Interpretation Comments Urine Amorphous Sediment (test code = 8246-1) FEW FEW [facility] TexasB-Type Natriuretic Joniniy3842-20-61 19:11:00* Test Item Value Reference Range Interpretation Comments B-Type Natriuretic Peptide (test code = 84991-1) < 10.0 0-100 [facility] Rzwhe3707-57-83 19:10:00* Test Item Value Reference Range Interpretation Comments Sodium Level (test code = 2951-2) 139 136-145 [facility]assium Menoo7387-96-79 19:10:00* Test Item Value Reference Range Interpretation Comments Potassium Level (test code = 2823-3) 4.4 3.5-5.1 [facility] TexasChloride Xfhtg2313-69-48 19:10:00* Test Item Value Reference Range Interpretation Comments Chloride Level (test code = 2075-0) 104 98-107 [facility] TexasCarbon Dioxide Isdjv9748-92-76 19:10:00* Test Item Value Reference Range Interpretation Comments Carbon Dioxide Level (test code = 2028-9) 28 22-29 [facility] TexasAnion Bgh4857-30-48 19:10:00* Test Item Value Reference Range Interpretation Comments Anion Gap (test code = 50242-1) 11.4 8-16 [facility] TexasBlood Urea Zpqzrgam8804-58-33 19:10:00* Test Item Value Reference Range Interpretation Comments Blood Urea Nitrogen (test code = 3094-0) 42 7-26 [facility] TexasCreatinine2020-03-10 19:10:00* Test Item Value Reference Range Interpretation Comments Creatinine (test code = 2160-0) 1.74 0.72-1.25 [facility] TexasBUN/Creatinine Uqgsi9084-82-16 19:10:00* Test Item Value Reference Range Interpretation Comments BUN/Creatinine Ratio (test code = 3097-3) 24 6-25 [facility] TexasEstimat Glomerular Filtration Rate 2019-06-07 19:10:00* Test Item Value Reference Range Interpretation Comments Estimat Glomerular Filtration Rate (test code = 732254940) 40 >60 Ranges were taken from the National Kidney Disease Education Program and the [facility] Kid[facility] Foundation literature.Reference ranges:60 or greater: Themim19-16 ( for 3 consecutive months): Chronic kidney disease 15 or less: Kidney failureThe Medical Center of Southeast TexasGlucose Svkfg3080-42-45 19:10:00* Test Item Value Reference Range Interpretation Comments Glucose Level (test code = WII2888) 178 74-118 [facility] TexasCalcium Ytrqg7823-49-19 19:10:00* Test Item Value Reference Range Interpretation Comments Calcium Level (test code = 22942-5) 11.1 8.4-10.2 [facility] TexasMagnesium Lnvhp5864-90-18 19:10:00* Test Item Value Reference Range Interpretation Comments Magnesium Level (test code = 18539-6) 1.4 1.3-2.1 [facility] TexasTotal Aejtadlel1758-43-78 19:10:00* Test Item Value Reference Range Interpretation Comments Total Bilirubin (test code = 1975-2) 0.6 0.2-1.2 [facility] TexasAspartate Amino Transf (AST/SGOT) 2019-06-07 19:10:00* Test Item Value Reference Range Interpretation Comments Aspartate Amino Transf (AST/SGOT) (test code = Aspartate Amino Transf (AST/SGOT)) 24 5-34 [facility] TexasAlanine Aminotransferase (ALT/SGPT) 2019-06-07 19:10:00* Test Item Value Reference Range Interpretation Comments Alanine Aminotransferase (ALT/SGPT) (test code = 1742-6) 23 0-55 [facility] TexasTotal Lrvbcgq1800-02-74 19:10:00* Test Item Value Reference Range Interpretation Comments Total Protein (test code = 2885-2) 6.8 6.5-8.1 [facility] TexasAlbumin2020-03-10 19:10:00* Test Item Value Reference Range Interpretation Comments Albumin (test code = 1751-7) 3.5 3.5-5.0 [facility] TexasGlobulin2020-03-10 19:10:00* Test Item Value Reference Range Interpretation Comments Globulin (test code = 89338-7) 3.3 2.3-3.5 [facility] TexasAlbumin/Globulin Cijig4960-40-64 19:10:00 * Test Item Value Reference Range Interpretation Comments Albumin/Globulin Ratio (test code = 1759-0) 1.1 0.8-2.0 [facility] TexasAlkaline Muzhkqaykdp4574-01-50 19:10:00* Test Item Value Reference Range Interpretation Comments Alkaline Phosphatase (test code = 6768-6) 108 40-150 [facility] TexasCreatine Gimrvd7359-23-71 19:10:00* Test Item Value Reference Range Interpretation Comments Creatine Kinase (test code = 2157-6) 42 30-200 [facility] TexasCreatine Kinase RS5725-18-16 19:10:00* Test Item Value Reference Range Interpretation Comments Creatine Kinase MB (test code = 61021-8) 1.70 0-5.0 [facility] TexasTroponin W3533-07-49 19:10:00* Test Item Value Reference Range Interpretation Comments Troponin I (test code = THF1604) < 0.001 0-0.300 [facility] TexasProthrombin Pduz1335-03-65 18:29:00* Test Item Value Reference Range Interpretation Comments Prothrombin Time (test code = 5902-2) 14.5 11.9-14.5 [facility] TexasProthromb Time International Ratio 2019-06-07 18:29:00* Test Item Value Reference Range Interpretation Comments Prothromb Time International Ratio (test code = 6301-6) 1.06 Oral Anticoagulant Therapy INR Values:1. Low Intensity Therapy 1.5 - 2.02 . Moderate Intensity Therapy 2.0 - 3.03. High Intensity Therapy(1) 2.5 - 3. 54. High Intensity Therapy(2) 3.0 - 4.05. Panic Value INR > 5.0 [facility] TexasActivated Partial Thromboplast Time 2019-06-07 18:29:00* Test Item Value Reference Range Interpretation Comments Activated Partial Thromboplast Time (test code = 26224-9) 32.3 23.8-35.5 [facility] TexasWhite Blood Tzmta2867-72-11 18:19:00* Test Item Value Reference Range Interpretation Comments White Blood Count (test code = 6690-2) 13.02 4.8-10.8 [facility] TexasRed Blood Yenaw6357-32-40 18:19:00* Test Item Value Reference Range Interpretation Comments Red Blood Count (test code = 789-8) 5.59 4.3-5.7 [facility] TexasHemoglobin2020-03-10 18:19:00* Test Item Value Reference Range Interpretation Comments Hemoglobin (test code = 79066-9) 16.0 14.0-18.0 [facility]Hematocrit2020-03-10 18:19:00* Test Item Value Reference Range Interpretation Comments Hematocrit (test code = 4544-3) 49.9 38.2-49.6 [facility] TexasMean Corpuscular Tkbvmq9848-65-14 18:19:00* Test Item Value Reference Range Interpretation Comments Mean Corpuscular Volume (test code = 787-2) 89.3 81-99 [facility] TexasMean Corpuscular Qghilvhlyh5942-74-01 18:19:00* Test Item Value Reference Range Interpretation Comments Mean Corpuscular Hemoglobin (test code = 785-6) 28.6 28-32 [facility] TexasMean Corpuscular Hemoglobin Concent 2019-06-07 18:19:00* Test Item Value Reference Range Interpretation Comments Mean Corpuscular Hemoglobin Concent (test code = 786-4) 32.1 31-35 [facility] TexasRed Cell Distribution Mnkhb9479-72-56 18:19:00* Test Item Value Reference Range Interpretation Comments Red Cell Distribution Width (test code = 14495-2) 14.4 11.7 -14.4 [facility] TexasPlatelet Xqiff4379-17-35 18:19:00* Test Item Value Reference Range Interpretation Comments Platelet Count (test code = 777-3) 217 140-360 [facility] TexasNeutrophils (%) (Auto)2019-06-07 18:19:00 * Test Item Value Reference Range Interpretation Comments Neutrophils (%) (Auto) (test code = 13188-1) 71.1 38.7-80.0 [facility] TexasLymphocytes (%) (Auto)2019-06-07 18:19:00 * Test Item Value Reference Range Interpretation Comments Lymphocytes (%) (Auto) (test code = 736-9) 18.7 18.0-39.1 [facility] TexasMonocytes (%) (Auto)2019-06-07 18:19:00* Test Item Value Reference Range Interpretation Comments Monocytes (%) (Auto) (test code = 5905-5) 8.0 4.4-11.3 [facility] TexasEosinophils (%) (Auto)2019-06-07 18:19:00 * Test Item Value Reference Range Interpretation Comments Eosinophils (%) (Auto) (test code = 713-8) 1.2 0.0-6.0 [facility]Basophils (%) (Auto)2019-06-07 18:19:00* Test Item Value Reference Range Interpretation Comments Basophils (%) (Auto) (test code = 706-2) 0.5 0.0-1.0 [facility] TexasIM GRANULOCYTES %2019-06-07 18:19:00* Test Item Value Reference Range Interpretation Comments IM GRANULOCYTES % (test code = IM GRANULOCYTES %) 0.5 0.0- 1.0 [facility] TexasNeutrophils # (Auto)2019-06-07 18:19:00* Test Item Value Reference Range Interpretation Comments Neutrophils # (Auto) (test code = 751-8) 9.3 2.1-6.9 [facility] TexasLymphocytes # (Auto)2019-06-07 18:19:00* Test Item Value Reference Range Interpretation Comments Lymphocytes # (Auto) (test code = 12420-3) 2.4 1.0-3.2 [facility] TexasMonocytes # (Auto)2019-06-07 18:19:00* Test Item Value Reference Range Interpretation Comments Monocytes # (Auto) (test code = 742-7) 1.0 0.2-0.8 [facility] TexasEosinophils # (Auto)2019-06-07 18:19:00* Test Item Value Reference Range Interpretation Comments Eosinophils # (Auto) (test code = 711-2) 0.2 0.0-0.4 [facility]Basophils # (Auto)2019-06-07 18:19:00* Test Item Value Reference Range Interpretation Comments Basophils # (Auto) (test code = 704-7) 0.1 0.0-0.1 [facility] TexasAbsolute Immature Granulocyte (auto 2019-06-07 18:19:00* Test Item Value Reference Range Interpretation Comments Absolute Immature Granulocyte (auto (amandeep t code = Absolute Immature Granulocyte (auto) 0.07 0-0.1 [facility] TexasCHEST SINGLE (PORTABLE)2019-06-07 17:45:00 [facility] [address] [place] [address] Patient Name: HERNAN HODGE MR #: [id number] : 1955 Age/Sex: 63/M Req #: [id number] Adm Physician: Ordered by: JUAN HACKETT MD Report #: [id number] Location: ER Room/Bed: Procedure: [id number] DX/ EST SINGLE (PORTABLE) Exam Date: Exam Time: REPORT STATUS: Signed EXAMINATION: EST SINGLE (PORTABLE) COMPARISON: CT abdomen 08/20/2018, abdomen x-ray 04/03/2018 INDICATION: Swollen leg, DVT DISCUSSION: Frontal view of the chest obtained at 1733 hours. HEART AND MEDIASTINUM: The heart is n ormal in size. The descending thoracic aorta is tortuous LINES: None. LUNGS: The lungs are well inflated and clear. No pneumonia or pulmonary ed kaveh. PLEURA: No pleural effusion or pneumothorax. BONES AND SOFT TISS UES: No focal osseous lesion. The soft tissues are normal. IMPRESSION: No acute cardiopulmonary disease. Signed by: Dr. Jose Oneal MD on 06/07/2019 5:49 PM Dictated By: JOSE ONEAL MD Electronically Sig ayaka By: JOSE ONEAL MD on 06/07/191748 Transcribed By: GILDARDO on 1748 COPY TO: JUAN HACKETT MD CT ABDOMEN/PELVIS [id number] 10:41:00 [facility] [address] [address] Patient Name: HERNAN HODGE MR #: [id number] : 1955 Age/Sex: 63/M Req #: [id number] Adm Physician: Ordered by: ARAIVND KASPER MD Report #: [id number] Location: CT Room/Bed: Procedure: [id number] CT/C T ABDOMEN/PELVIS WO Exam Date: 08/20/18 Exam Time: 1 023 REPORT STATUS: Signed EXAMIN ATION: CT of the abdomen and pelvis without contrast. TECHNIQUE: Spiral CT images of the abdomen and pelvis were performed from the lung bases to the le sser trochanters. No intravenous contrast was given per renal stone protocol. Coronal and sagittal reformatted images were obtained. COMPARISON: 04/03/19 CLINICAL HISTORY:Gross hematuria DISCUSSION: ABSENCE OF INTRAV ENOUS CONTRAST DECREASES SENSITIVITY FOR DETECTION OF FOCAL LESIONS AND VASCUL AR PATHOLOGY. ABDOMEN/PELVIS: LOWER THORAX: Groundglass opacity compat ible with subsegmental atelectasis in the dependent lower lobes. HEPATOB ILIARY:No focal hepatic lesions. No biliary ductal dilation. The gallbladder is normal. SPLEEN: No splenomegaly. PANCREAS: No focal masses or duct al dilatation. ADRENALS: Unchanged macroscopic fat-containing nodule in the lateral limb of the left adrenal. Right adrenal is unremarkable. KIDNEYS /URETERS: Unchanged marked left hydronephrosis with cortical thinning and abru pt transition to a normal caliber ureter at the UPJ (series 3 image 118. Small calculi in the left collecting system are also unchanged, as is a 1.5 cm hype rdense focus in the dependent portion of the collecting system (series 3 image 90). Right upper pole exophytic and parenchymal cysts are unchanged. Right ex trarenal pelvis. 2 mm nonobstructing upper pole calculus unchanged.. PELV IC ORGANS/BLADDER: The urinary bladder is well distended and unremarkable. PERITONEUM/RETROPERITONEUM: No free air or fluid. LYMPH NODES: No pelvic si dewall, retroperitoneal, or mesenteric lymphadenopathy. VESSELS: Limited evaluation without intravenous contrast. Atherosclerotic calcification of the abdominal aorta and iliac arterial systems without aneurysmal dilatation. GI TRACT: The large bowel shows no distention or wall thickening. Scattered s igmoid diverticula without inflammatory change. Appendix is normal. Diverticul um projecting from the second portion of the duodenum unchanged. BONES AND SOFT TISSUES: Fat-containing umbilical and bilateral inguinal hernias. Otherwi se no focal soft tissue abnormalities. No osseous destructive lesions. Degener ative changes of the hips, symphysis pubis, SI joints, and lumbar spine. IMPRESSION: Unchanged severe left hydronephrosis with cortical thinning re lated to chronic ureteropelvic junction obstruction. Hyperattenuating 1.9 cm focus in the dependent left renal pelvis is grossly unchanged. This may re present blood products or urothelial neoplasm as previously discussed. CT urog justin may be of benefit for further evaluation. Unchanged nonobstructing righ t upper pole calculus. Left adrenal myelolipoma unchanged. Large bowel diverticulosis without findings of diverticulitis. Atherosclerotic vascular disease. Signed by: Dr. Rozina Mcgill M.D. on 08/20/2018 10:54 AM Dictated By: ROZINA MCGILL MD [id number] COPY TO: CAMRON KASPER MD ABDOMEN-1VIEW (KUB)2018-04-03 16:15:00 [place] [address] Patient Name: HERNAN HODGE MR #: [id number] : 1955 Age/Sex: 62/M Req #: [id number] Adm Physician: ULICES PIZARRO MD Ordered by: ZAIDA TOLENTINO MD Report #: [id number] Location: MED/SURG Room/Bed: [facility] Procedure: [id number] DX /ABDOMEN-1VIEW (KUB) Exam Date: 04/03/18 Exam Time: 1550 REPORT STATUS: Signed Abdom en/KUB INDICATION: FOLLOW UP WITH CT [id number] Y COM PARISON: CT abdomen/pelvis 0345 hours. FINDINGS: Supine image obtained a t 1554 hours. Medical Devices: None Bowel: Unremarkable bowel gas rito amberly. No dilated bowel loops. No pneumatosis Calcifications: None over the r enal shadows or along the expected course of the ureters. A single left pelvic calcific age and corresponds to a phlebolith on CT. Organomegaly: None Lung bases: Clear Bones: Stable degenerative changes of the lumbar spine. IMPRESSION: No radiographic evidence of renal or ureteral calculus. Unremarkable bowel gas pattern. Signed by: Dr. Jose Oneal MD on 04/03/2018 4:17 PM Dictated By: JOSE ONEAL MD 16 Transcribed By: GILDARDO on 04/03/187 COPY TO: ZAIDA TOLENTINO MD CT ABDOMEN/PELVIS [id number] 04:22:00 [place] [address] Patient Name: HERNAN HODGE MR #: [id number] : 1955 Age/Sex: 62/M Req #: [id number] Adm Physician: Ordered by: BRUNO ESCAMILLA MD Report #: [id number] Location: ER Room/Bed: Procedure: [id number]/CT ABDOMEN/PELVIS WO Exam Date: 04/03/18 Exam T elder: 0343 REPORT STATUS: Signed EXAM: CT Abdomen and Pelvis WITHOUT contrast INDICATION: stone protocol, hem aturia COMPARISON: None. TECHNIQUE: Abdomen and pelvis were scanned utili Umbelng a multidetector helical scanner from the lung base to the pubic symphysis without administration of IV contrast. Absence of intravenous contrast decrea ses sensitivity for detection of focal lesions and vascular pathology. Coronal and sagittal reformations were obtained. Routine protocol was performed. IV CONTRAST: None ORAL CONTRAST: Water COMPLICATIONS: None RADIATION DOSE: Total DLP: 805.9 mGy*cm Estimated effe ctive dose: (DLP x 0.015 x size factor) mSv Dose modulation, iterative re construction, and/or weight based adjustment of the mA/kV was utilized to redu ce the radiation dose to as low as reasonably achievable. FINDINGS: LINES and TUBES: None. LOWER THORAX: Unremarkable HEPATOBILIARY: No focal hepatic lesions. No biliary ductal dilation. GALLBLADDER: No ra toro-opaque stones or sludge. No wall thickening. SPLEEN: No splenomegaly. PANCREAS: No focal masses or ductal dilatation. ADRENALS: Left adre nal 1.4 cm myelolipoma. No right adrenal nodules KIDNEYS/URETERS: L eft kidney: Chronic appearing severe left hydronephrosis with transition at t he ureteropelvic junction. There is left renal cortical thinning and atrophy. Mild left peripelvic stranding is noted. Thin linear 1.3 cm long 0.3 cm wide calcification along the posterior renal pelvis, adjacent to a possible triang ular shaped 1.9 x 1.5 cm of thickening measuring 35 HU (series 3 image 97). In ferior pole 0.2 cm parenchymal calcification. Interval region 1.3 cm cyst. Right kidney: Right extrarenal pelvis. Superior pole nonobstructing 2 mm ca lculus. Right renal cysts measuring up to 2.4 cm. GI TRACT: No abnormal distention, wall thickening, or evidence of bowel obstruction. 3.4 cm duodena l diverticulum along the second segment. There are diverticula within the colo n without evidence of diverticulitis. Appendix is normal. PELVIC ORGANS/ BLADDER: Unremarkable. LYMPH NODES: No lymphadenopathy. VESSELS: There is mild atherosclerotic disease in the aorta and major arterial branches. PERITONEUM / RETROPERITONEUM: No free air or fluid. BONES: There are dege nerative changes in the lumbar spine. SOFT TISSUES: Large indirect fat-cont aining bilateral inguinal hernias. Skin thickening in the left anterior abdo gina wall. Fat-containing umbilical hernia. IMPRESSION: 1. Sev ere left hydronephrosis likely secondary to chronic UPJ obstruction. 2. Mild left peripelvic stranding may suggest possible pyelitis. Recommend correlation with urinalysis. 3. Soft tissue attenuating 1.9 cm area within the left renal pelvis. Given hematuria, this may represent clot or underlying urothelial le gus. Consider correlation with CT urogram. 4. Right nephrolithiasis. 5. Left adrenal myelolipoma. 6. Colonic diverticulosis. 7. Additional incide ntal findings as above. Signed by: DR. Larry Calvillo MD on 04/03/2018 4:37 A M Dictated By: LARRY CALVILLO MD 6 Transcribed By: GILDARDO on 04/03/18436 COPY TO: BRUNO HOLLAND MD
--- NOTE | 2019-08-15 18:40 | Emergency Department Note ---
History of Present Illnes History of Present Illness Chief Complaint: General Medicine Complaints History of Present Illness This is a 64 year old male . 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 Any updates have been documented here. (JUAN DANIEL WINKLER NP) Past Medical History Recent Fever: No Clinical Suspicion of Infectio: No New/Unexplained Change in Ment: No Past Medical History: Hypertension, Diabetes, DVT/PE, Chronic Kidney Disease Other Medical History: DVT GOUT Past Surgical History: None (JUAN DANIEL WINKLER NP) Social History Smoking Cessation: Never Smoker Counseling Performed: No Alcohol Use: None Any Illegal Drug Use: No TB Exposure/Symptoms: No Physically hurt or threatened: No (JUAN DANIEL WINKLER NP) Other Last Tetanus: UNKNOWN Any Pre-Existing Lines (PICC,: No Is patient up to date on immun: Yes Last Flu: utd Last Pneumovax: utd (JUAN DANIEL WINKLER NP) Review of Systems Review of Systems Constitutional: no symptoms EENTM: no symptoms Cardiovascular: edema (3+ PITTING TO RIGHT LOWER LEG) Respiratory: dyspnea on exertion (DECREASED IN BASES) Gastrointestinal: no symptoms Genitourinary: no symptoms, other (URINE LOOKS VERY DARK-PATIENT STATES HE IS BEING TREATED FOR ISSUES WHICH HE COULD NOT TELL ME WHAT THEY WERE) Musculoskeletal: no symptoms Neurological: no symptoms, other (DIZZY) Endocrine: no symptoms Hematological/Lymphatic: blood clots (STATES HE HAS A BLOOD CLOT TO RIGHT LEG X 1 MONTH) Review of other systems All other systems reviewed and negative. (JUAN DANIEL WINKLER NP) Physical Exam Related Data Allergies: Coded Allergies: Iodinated Contrast Media (Verified Allergy, Mild, 04/03/18) shrimp (Verified Allergy, Mild, 04/03/18) Triage Vital Signs Vital Signs Date Time Temp Pulse Resp B/P (MAP) Pulse Ox O2 Delivery O2 Flow Rate FiO2 08/15/19 18:19 99.0 96 18 134/72 99 Vital signs reviewed: Yes (JUAN DANIEL WINKLER NP) Physical Exam CONSTITUTIONAL Constitutional: well-developed, morbidly obese HENT HENT: normocephalic, atraumatic, oropharynx normal HENT L/R: left TM normal, right TM normal EYES Eyes: PERRL, conjunctivae normal, EOM normal NECK Neck: ROM normal, supple PULMONARY Pulmonary: other (DECREASED BASES) CARDIOVASCULAR Cardiovascular: regular rhythm, irregular rhythm, RLE edema (3+ PITTING EDEMA) GASTROINTESTINAL Abdominal: soft, nontender GENITOURINARY Genitourinary: exam deferred SKIN Skin: warm, dry MUSCULOSKELETAL Musculoskeletal: edema (3+ PITTING EDEMA TO RIGHT LOWER EXT) NEUROLOGICAL Neurological: alert, oriented x 3, weakness, other (FEELS DIZZINESS ON AND OFF) PSYCHOLOGICAL Psychological: mood/affect normal, behavior normal (JUAN DANIEL WINKLER NP) Results Laboratory Lab results reviewed: Yes (JUAN DANIEL WINKLER NP) Imaging Imaging results reviewed: Yes Impressions IMPRESSION: 1. Lines and Tubes: None 2. Hypoinflated lungs. Patchy opacities in bilateral lower lungs, left greater than right, suggestive of atelectasis. No definite consolidation. 3. Prominence of the cardiac silhouette secondary to AP portable projection and low lung volumes. Central vascular crowding due to low lung volumes. 4. No acute bony abnormalities. (JUAN DANIEL WINKLER NP) Procedures 12 Lead ECG Interpretation Steam Shovel Operating Engineer: Interpreted by ED physician (DAVID) Date: August 15, 2019 Time: 18:18 Rhythm: sinus rhythm Rate: normal BPM: 98 Conduction: incomplete RBBB Clinical Impression: abnormal ECG (JUAN DANIEL WINKLER NP) Critical Care Time Subsequent provider I assumed direction of critical care for this patient from another provider of my specialty. (JUAN DANIEL WINKLER NP) Assessment & Plan Assessment & Plan Problems: (1) DVT (deep venous thrombosis) (2) Diabetes Assessment & Plan STATES HE WAS AT [facility] 1 MONTH AGO FOR BLOOD CLOT TO RIGHT LOWER LEG, BACK TODAY BACAUSE ITS NOT GETTING BETTER C/O DIZZINESS AND INTERMITTENT SOB NOT SURE IF HE IS SOB BECAUSE HE IS DIZZY OR VICE VERSA DENIES PAIN TO RIGHT LOWER LEG ON EXAM PT LEG APPEARS MORE SWOLLEN THAN LEFT AND SLIGHTLY CYANOTIC (JUAN DANIEL WINKLER NP) Reassessment Reassessment time: 16:[address] CURRIE PATIENT PRESENTATION,EXAM AND PLAN OF CARE. AGREES WITH TREATMENT PLAN. 1999- AWAITING US. PATIENT IN NO DISTRESS, RESTING AT THIS TIME. (JUAN DANIEL WINKLER GUM ROLLING MACHINE OPERATOR) Depart Disposition: ADMITTED Last Vital Signs Date Time Temp Pulse Resp B/P (MAP) Pulse Ox O2 Delivery O2 Flow Rate FiO2 08/15/19 18:22 97 18 123/65 99 08/15/19 18:19 99.0 (JUAN DANIEL WINKLER GUM ROLLING MACHINE OPERATOR) Home Meds Reported Medications Insulin Npl/Insulin Lispro (HUMALOG MIX 75-25 KWIKPEN) 100 Unit/1 Ml Insuln.pen, 40 UNIT BID 08/15/19 Rivaroxaban (XARELTO) 20 Mg Tablet, 20 MG PO DAILY 08/15/19 Famotidine (FAMOTIDINE) 20 Mg Tab, 20 MG PO DAILY, #30 TAB 08/15/19 Tamsulosin Hcl* (FLOMAX*) 0.4 Mg Cap, 0.4 MG PO DAILY, #30 CAP 08/15/19 Empagliflozin (Jardiance) 10 Mg Tablet, 10 MG PO DAILY 08/15/19 Atorvastatin Calcium (ATORVASTATIN CALCIUM) 10 Mg Tablet, 10 MG PO HS 04/03/18 Allopurinol (ALLOPURINOL) 300 Mg Tablet, 300 MG PO DAILY 04/03/18 Gabapentin (GABAPENTIN) 100 Mg Capsule, 100 MG PO TID 04/03/18 Discontinued Reported Medications Lisinopril (LISINOPRIL) 2.5 Mg Tablet, 5 MG PO DAILY, #30 TAB 04/03/18 Empagliflozin (Jardiance) 10 Mg Tablet, DAILY 08/15/19 Ranitidine Hcl (RANITIDINE HCL) 150 Mg Tablet, 150 MG PO Q12H 04/03/18 Warfarin Sodium (COUMADIN) 5 Mg Tablet, 5 MG PO DAILY 04/03/18 Tamsulosin Hcl (TAMSULOSIN HCL) 0.4 Mg Cap.er.24h, 0.4 MG PO HS 04/03/18 Insuln Asp Prt/Insulin Aspart (NOVOLOG MIX 70-30 FLEXPEN SYRN) 100 Unit/1 Ml Insuln.pen, 40 UNITS SQ BIDWM 04/03/18 [Farxiga] 10 TAB No Conflict Check, 10 MG PO DAILY 04/03/18 Attestation Provider Attestation The patient's history, exam findings, diagnostics, and a summary of any interventions or procedures was reviewed in detail with our LULY. I personally interviewed and examined the patient, and I have reviewed and agree with the HPI andexam. My personal exam shows [ R LE edema. Seen at bedside in bed 10 , equivocal historian]. I confirm the diagnosis as documented by the LULY. I have reviewed and agree with the care plan articulated in the disposition section. (NUVIA HERNANDEZ DO) JUAN DANIEL WINKLER NP August 15, 2019 18:40 NUVIA HERNANDEZ DO August 20, 2019 04:34
[2019-08-15 18:41] LABS: BASOPHILS # (AUTO) 0.1 (0.0-0.1); BASOPHILS % 0.7 % (0.0-1.0); EOSINOPHILS # (AUTO) 0.4 (0.0-0.4); EOSINOPHILS % 3.7 % (0.0-6.0); HEMATOCRIT 30.9 % (38.2-49.6); HEMOGLOBIN 9.2 g/dL (14.0-18.0); LYMPHOCYTES # (AUTO) 2.6 (1.0-3.2); LYMPHOCYTES % 27.1 % (18.0-39.1); MEAN CORPUSCULAR HEMOGLOBIN 25.9 pg (28-32); MEAN CORPUSCULAR HGB CONC 29.8 g/dL (31-35); MONOCYTES # (AUTO) 0.9 (0.2-0.8); MONOCYTES % 8.9 % (4.4-11.3); NEUTROPHILS # (AUTO) 5.7 (2.1-6.9); NEUTROPHILS % 59.2 % (38.7-80.0); PLATELET COUNT 283 x10e3/uL (140-360); RED BLOOD COUNT 3.55 x10e6/uL (4.3-5.7); RED CELL DISTRIBUTION WIDTH 14.7 % (11.7-14.4)
[2019-08-15 18:47] LABS: INR 2.13; PROTHROMBIN TIME 25.4 seconds (11.9-14.5)
[2019-08-15 18:55] LABS: ALBUMIN 3.5 g/dL (3.5-5.0); ALBUMIN/GLOBULIN RATIO 1.3 (0.8-2.0); ANION GAP 14.6 mmol/L (8-16); CALCIUM 10.4 mg/dL (8.4-10.2); CREATININE, SERUM 1.88 mg/dL (0.72-1.25); POTASSIUM 4.6 mmol/L (3.5-5.1)
[2019-08-15 18:58] LABS: BILIRUBIN,URINE NEGATIVE (NEGATIVE); CLARITY,URINE TURBID (CLEAR); COLOR,URINE RED (YELLOW); KETONES,URINE NEGATIVE (NEGATIVE); LEUKOCYTE ESTERASE ,URINE NEGATIVE (NEGATIVE); NITRITE,URINE NEGATIVE (NEGATIVE); PROTEIN,URINE DIPSTICK >=300 (NEGATIVE); URINE UROBILINOGEN 0.2 mg/dL (0.2 - 1)
[2019-08-15 18:59] LABS: BACTERIA,URINE MODERATE /HPF; RBC,URINE 21-50 /HPF (0-5)
[2019-08-15 19:01] LABS: CREATINE KINASE MB 2.4 ng/mL (0-5.0)
--- NOTE | 2019-08-15 20:00 | Diagnostic Imaging Report ---
Examination: Single AP view of the chest. COMPARISON: Portable chest 06/07/2019 INDICATION: Dizziness, history of blood clot IMPRESSION: 1. Lines and Tubes: None 2. Hypoinflated lungs. Patchy opacities in bilateral lower lungs, left greater than right, suggestive of atelectasis. No definite consolidation. 3. Prominence of the cardiac silhouette secondary to AP portable projection and low lung volumes. Central vascular crowding due to low lung volumes. 4. No acute bony abnormalities. Signed by: Dr. Jose Francisco Davila M.D. on 08/15/2019 7:57 PM
[2019-08-15] MEDS ORDERED: FLOMAX0.4 MG PO (21:03)
[2019-08-15] MEDS ORDERED: XARELTO20 MG PO (21:03)
[2019-08-15] MEDS ORDERED: FAMOTIDINE20 MG PO (21:03)
[2019-08-15] MEDS ORDERED: HUMALOG MI100 UNIT/2 (21:03)
[2019-08-15] MEDS ORDERED: JARDIANCE10 MG PO (21:03)
--- OUTSIDE RECORDS SUMMARY | 2019-08-15 22:02 | XMS REPORT ---
Author Author [facility] t Organization [facility] Address [address] [facility]. [address] [place] [address] Phone Unavailable Care Team Providers Care Coin Purse Framer Name Role Phone MARLA OSORIO MD PCP NUVIA HERNANDEZ Attphys Unavailable Breezy HACKETT Attphys Unavailable ARAVIND KASPER Attphys Unavailable Raymond PIZARRO Attphys Unavailable Raymond PIZARRO Admphys Unavailable Problems Condition Name Condition Details Condition Category Status Onset Date Resolution Date Last Treatment Date Treating Clinician Comments Source Diabetes mellitus Diabetes Problem Active [facility] Hematuria Hematuria Problem Active [facility] Hydronephrosis of left kidney Hydronephrosis, left Problem Active [facility] Urinary tract infection UTI (urinary tract infection) Problem Active [facility] Allergies, Adverse Reactions, Alerts Allergy Name Allergy Type Status Severity Reaction(s) Onset Date Inacti ve Date Treating Clinician Comments Source shrimp Allergy to Substance Active Mild 2018-04-03 00:00:00 [facility] Iodinated Contrast Media Allergy to Substance Active Mild 2018-04-03 00:00:00 [facility] Medications Ordered Medication Name Filled Medication Name Start Date Stop Da te Current Medication? Ordering Clinician Indication Dosage Frequency Signature (SIG) Comments Components Source Allopurinol 300 Mg Tablet Allopurinol 300 Mg Tablet Yes 300 Daily [facility] Atorvastatin Calcium 10 Mg Tablet Atorvastatin Calcium 10 Mg Tablet Yes 10 Bedtime [facility] Farxiga 10 Tab Farxiga 10 Tab Yes 10 Daily [facility] Gabapentin 100 Mg Capsule Gabapentin 100 Mg Capsule Yes 100 Every 12 Hours [facility] Insuln Asp Prt/Insulin Aspart (Novolog M ix 70-30 Flexpen Syrn) 100 Unit/1 Ml Insuln.pen Insuln Asp Prt/Insulin Aspart (Novolog M ix 70-30 Flexpen Syrn) 100 Unit/1 Ml Insuln.pen Yes 40 Twice Daily With Meals [facility] Lisinopril 2.5 Mg Tablet Lisinopril 2.5 Mg Tablet Yes 5 Daily [facility] Ranitidine Hcl 150 Mg Tablet Ranitidine Hcl 150 Mg Tablet Y es 150 Every 12 Hours [facility] Tamsulosin Hcl 0.4 Mg Cap.er.24h Tamsulosin Hcl 0.4 Mg Cap.er.24h Yes .4 Bedtime [facility] Warfarin Sodium (Coumadin) 5 Mg Tablet Warfarin Sodium (Coumadin ) 5 Mg Tablet Yes 5 Daily [facility] Procedures Procedure Date / Time Performed Performing Clinician [facility] e CT of abdomen and pelvis without contrast 2018-08-20 00:00:00 ARAVIND CHAMPION [facility] Encounters Start Date/Time End Date/Time Encounter Type Admission Type Attendi [facility] Facility Care Department Encounter ID Source 2019-06-07 16:29:00 2019-06-07 20:00:00 Departed Emergency Room 1 JUAN HACKETT [facility] [id number] [facility] 2019-06-07 15:36:00 2019-06-07 15:36:00 Registered Clinic [facility] [id number] [facility] 2018-08-20 09:44:00 2018-08-20 09:44:00 Registered Clinic 3 ARAVIND KASPER [facility] [id number] [facility] 2018-04-03 06:38:00 2018-04-05 13:39:00 Discharged Inpatient 1 ULICES PIZARRO [facility] [id number] [facility] Results Test Description Test Time Test Comments Results Result Comments Source CHEST SINGLE (PORTABLE) 2019-08-15 19:56:00 [place] [address] Patient Name: HERNAN HODGE MR #: [id number] : 1955 Age/Sex: 64/M Req #: [id number] Adm Physician: Ordered by: JUAN DANIEL WINKLER [employer] REPAIRER Report #: [id number] Location: ER Room/Bed: Procedure: [id number] DX/CHEST SINGLE (PORTABLE) Exam Date: 08/15/19 Exam Time: 1928 REPORT STATUS: Signed Examination: Single AP view of the chest. COMPARISON: Portable chest 06/07/2019 INDICATION: Dizziness, history of blood clot IMPRESSION: 1. Lines and Tubes: None 2. Hypoinflated lungs. Patchy opacities in bilateral lower lungs, left greater than right, suggestive of atelectasis. No definite consolidation. 3. Prominence of the cardiac silhouette secondary to AP portable projection and low lung volumes. Central vascular crowding due to low lung volumes. 4. No acute bony abnormalities. Signed by: Dr. Jose Francisco Rico M.D. on 08/15/2019 7:57 PM Dictated By: JOSE FRANCISCO RICO MD 57 Transcribed By: GILDARDO on 08/15/191956 COPY TO: JUAN DANIEL WINKLER [employer] Urine Color 2019-06-07 19:25:00 Test Item Urine Color (test code = 5778-6) STRAW YELLOW [facility] [id number] 19:25:00* Test Item Value Reference Range Interpretation Comments Urine Clarity (test code = 57331-5) CLOUDY CLEAR [facility] Specific Ddiquve9876-17-03 19:25:00 * Test Item Value Reference Range Interpretation Comments Urine Specific [place] (test code = 5811-5) 1.020 1.010-1.02 5 [facility] [id number] 19:25:00* Test Item Value Reference Range Interpretation Comments Urine pH (test code = 96310-7) 5.5 5-7 [facility] Leukocyte Ukjjklma3960-17-99 19:25:00* Test Item Value Reference Range Interpretation Comments Urine Leukocyte Esterase (test code = 5799-2) NEGATIVE NEGATIVE [facility] Muffbsv9465-35-48 19:25:00* Test Item Value Reference Range Interpretation Comments Urine Nitrite (test code = 80406-8) NEGATIVE NEGATIVE [facility] Jaezuyz4166-65-57 19:25:00* Test Item Value Reference Range Interpretation Comments Urine Protein (test code = 5804-0) 1+ NEGATIVE [facility] Glucose (UA)2019-06-07 19:25:00* Test Item Value Reference Range Interpretation Comments Urine Glucose (UA) (test code = 2349-9) NEGATIVE NEGATIVE [facility] Dppprjk8603-69-38 19:25:00* Test Item Value Reference Range Interpretation Comments Urine Ketones (test code = 34925-8) NEGATIVE NEGATIVE [facility] Tehxocugselt0895-10-10 19:25:00* Test Item Value Reference Range Interpretation Comments Urine Urobilinogen (test code = 00851-8) 0.2 0.2-1 [facility] Fdvbkzzrd1436-92-69 19:25:00* Test Item Value Reference Range Interpretation Comments Urine Bilirubin (test code = 1978-6) NEGATIVE NEGATIVE [facility] Wnqro0033-59-13 19:25:00* Test Item Value Reference Range Interpretation Comments Urine Blood (test code = 97851-6) NEGATIVE NEGATIVE [facility] [id number] 19:25:00* Test Item Value Reference Range Interpretation Comments Urine WBC (test code = 5821-4) 6-10 0-5 [facility] JJT5083-01-06 19:25:00* Test Item Value Reference Range Interpretation Comments Urine RBC (test code = 91493-3) 11-20 0-5 [facility] Mdfzdlxa4928-79-15 19:25:00* Test Item Value Reference Range Interpretation Comments Urine Bacteria (test code = 00813-8) MODERATE NONE [facility] Epithelial Llvgy3609-81-61 19:25:00 * Test Item Value Reference Range Interpretation Comments Urine Epithelial Cells (test code = 17559-4) FEW NONE [facility] Amorphous Ldxibkkd6369-45-07 19:25:00* Test Item Value Reference Range Interpretation Comments Urine Amorphous Sediment (test code = 8246-1) FEW FEW [facility] CenterB-Type Natriuretic Zqofmwa3233-62-51 19:11:00* Test Item Value Reference Range Interpretation Comments B-Type Natriuretic Peptide (test code = 55306-9) < 10.0 0-100 [facility] Kdzom9693-57-71 19:10:00* Test Item Value Reference Range Interpretation Comments Sodium Level (test code = 2951-2) 139 136-145 [facility] CenterPotassium Ukwsh9300-38-60 19:10:00* Test Item Value Reference Range Interpretation Comments Potassium Level (test code = 2823-3) 4.4 3.5-5.1 [facility] CenterChloride Hpgka0060-85-09 19:10:00* Test Item Value Reference Range Interpretation Comments Chloride Level (test code = 2075-0) 104 98-107 [facility] CenterCarbon Dioxide Ykxhw6591-79-84 19:10:00* Test Item Value Reference Range Interpretation Comments Carbon Dioxide Level (test code = 2028-9) 28 22-29 [facility] CenterAnion Yep0511-83-84 19:10:00* Test Item Value Reference Range Interpretation Comments Anion Gap (test code = 15824-9) 11.4 8-16 [facility] CenterBlood Urea Yhoanlcz8381-86-00 19:10:00* Test Item Value Reference Range Interpretation Comments Blood Urea Nitrogen (test code = 3094-0) 42 7-26 [facility] CenterCreatinine2020-03-10 19:10:00* Test Item Value Reference Range Interpretation Comments Creatinine (test code = 2160-0) 1.74 0.72-1.25 [facility] CenterBUN/Creatinine Twiuw3958-77-91 19:10:00* Test Item Value Reference Range Interpretation Comments BUN/Creatinine Ratio (test code = 3097-3) 24 6-25 [facility] CenterEstimat Glomerular Filtration Rate 2019-06-07 19:10:00* Test Item Value Reference Range Interpretation Comments Estimat Glomerular Filtration Rate (test code = 573737153) 40 >60 Ranges were taken from the National Kidney Disease Education Program and the [employer] literature.Reference ranges:60 or greater: Gpncbq11-58 ( for 3 consecutive months): Chronic kidney disease 15 or less: Kidney failureWoodland Heights Medical CenterGlucose Ddknb9013-94-78 19:10:00* Test Item Value Reference Range Interpretation Comments Glucose Level (test code = JTG3562) 178 74-118 [facility] CenterCalcium Ajnnj1447-86-01 19:10:00* Test Item Value Reference Range Interpretation Comments Calcium Level (test code = 17211-9) 11.1 8.4-10.2 [facility] CenterMagnesium Gkugx1624-39-80 19:10:00* Test Item Value Reference Range Interpretation Comments Magnesium Level (test code = 31689-4) 1.4 1.3-2.1 [facility] CenterTotal Xthinrlgo9691-43-86 19:10:00* Test Item Value Reference Range Interpretation Comments Total Bilirubin (test code = 1975-2) 0.6 0.2-1.2 [facility] CenterAspartate Amino Transf (AST/SGOT) 2019-06-07 19:10:00* Test Item Value Reference Range Interpretation Comments Aspartate Amino Transf (AST/SGOT) (test code = Aspartate Amino Transf (AST/SGOT)) 24 5-34 [facility] CenterAlanine Aminotransferase (ALT/SGPT) 2019-06-07 19:10:00* Test Item Value Reference Range Interpretation Comments Alanine Aminotransferase (ALT/SGPT) (test code = 1742-6) 23 0-55 [facility] CenterTotal Olklgak5268-42-38 19:10:00* Test Item Value Reference Range Interpretation Comments Total Protein (test code = 2885-2) 6.8 6.5-8.1 [facility] CenterAlbumin2020-03-10 19:10:00* Test Item Value Reference Range Interpretation Comments Albumin (test code = 1751-7) 3.5 3.5-5.0 [facility] CenterGlobulin2020-03-10 19:10:00* Test Item Value Reference Range Interpretation Comments Globulin (test code = 48610-6) 3.3 2.3-3.5 [facility] CenterAlbumin/Globulin Lnnvt2902-28-36 19:10:00 * Test Item Value Reference Range Interpretation Comments Albumin/Globulin Ratio (test code = 1759-0) 1.1 0.8-2.0 [facility] CenterAlkaline Sktpwpasdhx5694-52-82 19:10:00* Test Item Value Reference Range Interpretation Comments Alkaline Phosphatase (test code = 6768-6) 108 40-150 [facility] CenterCreatine Bzxrhx4774-99-52 19:10:00* Test Item Value Reference Range Interpretation Comments Creatine Kinase (test code = 2157-6) 42 30-200 [facility] CenterCreatine Kinase VR8054-60-61 19:10:00* Test Item Value Reference Range Interpretation Comments Creatine Kinase MB (test code = 17375-4) 1.70 0-5.0 [facility] CenterTroponin C5525-46-96 19:10:00* Test Item Value Reference Range Interpretation Comments Troponin I (test code = KED2846) < 0.001 0-0.300 [facility] CenterProthrombin Khbv5675-39-32 18:29:00* Test Item Value Reference Range Interpretation Comments Prothrombin Time (test code = 5902-2) 14.5 11.9-14.5 [facility] CenterProthromb Time International Ratio 2019-06-07 18:29:00* Test Item Value Reference Range Interpretation Comments Prothromb Time International Ratio (test code = 6301-6) 1.06 Oral Anticoagulant Therapy INR Values:1. Low Intensity Therapy 1.5 - 2.02 . Moderate Intensity Therapy 2.0 - 3.03. High Intensity Therapy(1) 2.5 - 3. 54. High Intensity Therapy(2) 3.0 - 4.05. Panic Value INR > 5.0 [facility] CenterActivated Partial Thromboplast Time 2019-06-07 18:29:00* Test Item Value Reference Range Interpretation Comments Activated Partial Thromboplast Time (test code = 27100-6) 32.3 23.8-35.5 [facility] CenterWhite Blood Nihpy7975-12-17 18:19:00* Test Item Value Reference Range Interpretation Comments White Blood Count (test code = 6690-2) 13.02 4.8-10.8 [facility] CenterRed Blood Qltbm3240-08-56 18:19:00* Test Item Value Reference Range Interpretation Comments Red Blood Count (test code = 789-8) 5.59 4.3-5.7 [facility] CenterHemoglobin2020-03-10 18:19:00* Test Item Value Reference Range Interpretation Comments Hemoglobin (test code = 21450-3) 16.0 14.0-18.0 [facility] CenterHematocrit2020-03-10 18:19:00* Test Item Value Reference Range Interpretation Comments Hematocrit (test code = 4544-3) 49.9 38.2-49.6 [facility] CenterMean Corpuscular Wcggij2594-63-08 18:19:00* Test Item Value Reference Range Interpretation Comments Mean Corpuscular Volume (test code = 787-2) 89.3 81-99 [facility] CenterMean Corpuscular Hxelwujgjk7391-97-07 18:19:00* Test Item Value Reference Range Interpretation Comments Mean Corpuscular Hemoglobin (test code = 785-6) 28.6 28-32 [facility] CenterMean Corpuscular Hemoglobin Concent 2019-06-07 18:19:00* Test Item Value Reference Range Interpretation Comments Mean Corpuscular Hemoglobin Concent (test code = 786-4) 32.1 31-35 [facility] CenterRed Cell Distribution Uarwa7255-82-76 18:19:00* Test Item Value Reference Range Interpretation Comments Red Cell Distribution Width (test code = 69380-7) 14.4 11.7 -14.4 [facility] CenterPlatelet Wbysa9110-79-53 18:19:00* Test Item Value Reference Range Interpretation Comments Platelet Count (test code = 777-3) 217 140-360 [facility] CenterNeutrophils (%) (Auto)2019-06-07 18:19:00 * Test Item Value Reference Range Interpretation Comments Neutrophils (%) (Auto) (test code = 67751-5) 71.1 38.7-80.0 [facility] CenterLymphocytes (%) (Auto)2019-06-07 18:19:00 * Test Item Value Reference Range Interpretation Comments Lymphocytes (%) (Auto) (test code = 736-9) 18.7 18.0-39.1 [facility] CenterMonocytes (%) (Auto)2019-06-07 18:19:00* Test Item Value Reference Range Interpretation Comments Monocytes (%) (Auto) (test code = 5905-5) 8.0 4.4-11.3 [facility] CenterEosinophils (%) (Auto)2019-06-07 18:19:00 * Test Item Value Reference Range Interpretation Comments Eosinophils (%) (Auto) (test code = 713-8) 1.2 0.0-6.0 [facility] CenterBasophils (%) (Auto)2019-06-07 18:19:00* Test Item Value Reference Range Interpretation Comments Basophils (%) (Auto) (test code = 706-2) 0.5 0.0-1.0 [facility] CenterIM GRANULOCYTES %2019-06-07 18:19:00* Test Item Value Reference Range Interpretation Comments IM GRANULOCYTES % (test code = IM GRANULOCYTES %) 0.5 0.0- 1.0 [facility] CenterNeutrophils # (Auto)2019-06-07 18:19:00* Test Item Value Reference Range Interpretation Comments Neutrophils # (Auto) (test code = 751-8) 9.3 2.1-6.9 [facility] CenterLymphocytes # (Auto)2019-06-07 18:19:00* Test Item Value Reference Range Interpretation Comments Lymphocytes # (Auto) (test code = 79799-7) 2.4 1.0-3.2 [facility] CenterMonocytes # (Auto)2019-06-07 18:19:00* Test Item Value Reference Range Interpretation Comments Monocytes # (Auto) (test code = 742-7) 1.0 0.2-0.8 [facility] CenterEosinophils # (Auto)2019-06-07 18:19:00* Test Item Value Reference Range Interpretation Comments Eosinophils # (Auto) (test code = 711-2) 0.2 0.0-0.4 [facility] CenterBasophils # (Auto)2019-06-07 18:19:00* Test Item Value Reference Range Interpretation Comments Basophils # (Auto) (test code = 704-7) 0.1 0.0-0.1 [facility] CenterAbsolute Immature Granulocyte (auto 2019-06-07 18:19:00* Test Item Value Reference Range Interpretation Comments Absolute Immature Granulocyte (auto (amandeep t code = Absolute Immature Granulocyte (auto) 0.07 0-0.1 [facility] SINGLE (PORTABLE)2019-06-07 17:45:00 [place] [address] Patient Name: HERNAN HODGE MR #: [id number] : 1955 Age/Sex: 63/M Req #: [id number] Adm Physician: Ordered by: JUAN HACKETT MD Report #: [id number] Location: ER Room/Bed: Procedure: [id number] DX/CH EST SINGLE (PORTABLE) Exam Date: Exam Time: REPORT STATUS: Signed EXAMINATION: CH EST SINGLE (PORTABLE) COMPARISON: CT abdomen 08/20/2018, [...] COPY TO: JUAN HACKETT MD CT ABDOMEN/PELVIS [id number] 10:41:[address], [place], [place] [address] Patient Name: HERNAN HODGE MR #: [id number] : 1955 Age/Sex: 63/M Req #: [id number] Adm Physician: Ordered by: ARAVIND KASPER MD Report #: [id number] Location: CT Room/Bed: Procedure: [id number] CT/C T ABDOMEN/PELVIS WO Exam Date: 08/20/18 [...] 10:54 AM Dictated By: ROZINA MCGILL MD 1059 COPY TO: CAMRON KASPER MD ABDOMEN-1VIEW ([facility])2018-04-03 16:15:00 [place] [address] Patient Name: HERNAN HODGE MR #: [id number] : 1955 Age/Sex: 62/M Req #: [id number] Adm Physician: ULICES PIZARRO MD Ordered by: ZAIDA TOLENTINO MD Report #: [id number] Location: MED/SURG Room/Bed: [facility] Procedure: [id number] DX /ABDOMEN-1VIEW ([facility]) Exam Date: 04/03/18 Exam [...] ONEAL MD 16 Transcribed By: GILDARDO on 04/03/181616 COPY TO: ZAIDA TOLENTINO MD CT ABDOMEN/PELVIS [id number] 04:22:00 [place] [address] Patient Name: HERNAN HODGE MR #: [id number] : 1955 Age/Sex: 62/M Req #: [id number] Adm Physician: Ordered by: BRUNO ESCAMILLA MD Report #: [id number] Location: ER Room/Bed: Procedure: [id number]/CT ABDOMEN/PELVIS WO Exam Date: 04/03/18 Exam T elder: 0343 REPORT STATUS: Signed EXAM: CT Abdomen and Pelvis WITHOUT contrast INDICATION: stone protocol, hem aturia COMPARISON: None. TECHNIQUE: Abdomen and pelvis were scanned utili zing a multidetector helical scanner from the lung [...]
--- NOTE | 2019-08-15 22:10 | NUR ---
Received patient from ER. AAOx2-3 with forgetfulness. Able to make needs known. Resp. even and unlabored. skin warm and dry to touch. Denies any pain/discomfort at this time. Bed in locked and low position. nonskid socks applied. Call light in reach.
--- NOTE | 2019-08-15 23:02 | Diagnostic Imaging Report ---
Perfusion Lung Scan NOTE: Lung ventilation studies with xenon are not being performed per the recommendation of the Society of Nuclear Medicine and Molecular Imaging. It is not possible to be certain that the ventilation system is adequately disinfected. Ventilation studies with Tc-99m DTPA particles is contraindicated because the delivery by nebulization generates too many water droplets from the patient's airway. Clinical Information: Dizziness; blood clots Comparison: Chest radiograph 08/15/2019 Discussion: Ventilation images were not obtained. See note above. Perfusion images of the lungs were obtained in multiple projections following intravenous administration of approximately 6 mCi of Tc-99m MAA. Distribution of tracer activity is minimally irregular throughout the right lung but no segmental perfusion defects of any size are present. The major fissure of the left lung is widened and there is absent perfusion to 25-50% of the superior segment of the LLL. The reminder of the lung shows minimally irregular distribution of tracer and there are no other segmental perfusion defects of any size. The cardiomediastinal silhouette is unremarkable. Impression: 1. Scan findings represent an INTERMEDIATE probability for acute pulmonary embolic disease based on the PIOPED II criteria. This probability is assigned based on a single moderate-sized perfusion defect in the superior segment of the LLL that is associated with widening of the major fissure of the left lung. No PE is suspected in the right lung. 2. A ventilation study in this case would be useful to determine if a matched ventilation defect is seen in the superior segment of the LLL; this would indicate parenchymal disease and the probability could be lower to LOW. The chest radiograph from today shows some atelectasis in the bilateral lower lobes, greater on the left. This suggests that some parenchymal lung disease may be present. If parenchymal disease does develop further in the LLL, probability could be decreased to low. 3. Widening of the major fissure of the left lung may be due to loculated effusion or scarring. Signed by: Dr. Romana Peralta M.D. on 08/15/2019 10:59 PM
[2019-08-15] MEDS ORDERED: JARDIANCE10 MG (23:08)
[2019-08-16] VITALS (17 sets, daily range): BP systolic 101–155; BP diastolic 53–81
--- NOTE | 2019-08-16 | NUR ---
Received results of VQ Scan. Notified Dr. Anthony, no new orders at this time.
[2019-08-16] MEDS ORDERED: RIVAROXABAN 15 MG TABLET PO ONE (00:30)
[2019-08-16] MEDS ORDERED: DEXTROSE 50% SYRINGE 50 ML IV PRN (07:15)
[2019-08-16] MEDS: INSULIN LISPRO 100 UNIT/1 ML 3ML VIAL SQ SCH ×4 (07:30→22:00)
[2019-08-16 08:09] LABS: % IRON SATURATION 6 % (15-50); IRON 24 ug/dL (65-175); TOTAL IRON BINDING CAPACITY 382 ug/dL (261-478); TRANSFERRIN 273 mg/dL (174-364)
[2019-08-16] MEDS: SODIUM CHLORIDE 0.9% 1000ML 1,000 ML IV SCH (08:36)
--- NOTE | 2019-08-16 08:43 | History and Physical ---
CHIEF COMPLAINT: The patient comes in with dizziness and also apparent shortness of breath. HISTORY OF PRESENT ILLNESS: Mr. Torito Mejia with a known diabetic with a history of chronic DVTs and PEs, was in usually health until about a month ago. The patient started to have some dizziness, which was more on standing up. The patient came in with symptoms of also shortness of breath. A V/Q scan was performed, shows an intermediate risk for pulmonary embolism. The patient is admitted for both dizziness and for workup of hypoxia. PAST MEDICAL HISTORY: History of hypertension, history of diabetes, history of DVT, history of chronic kidney disease, history of hematuria, history of interstitial nephritis, and history of gout. PAST SURGICAL HISTORY: Noncontributory procedures done. The patient has had several endoscopies apparently for hiatal hernia, and also for kidney ureteroscopies. SOCIAL HISTORY: No EtOH. No IV drug abuse. No history of illegal drug abuse either. REVIEW OF SYSTEMS: No chest pains. The patient has edema to the right lower extremity. RESPIRATORY: Positive for dyspnea on exertion. The patient has dizziness as mentioned above on changing positions on getting up suddenly. No hematuria at this time. Does have back pain. NEUROLOGICAL: No symptoms. : No polyuria, no polydipsia. EXTREMITIES: The patient has a history of blood clots on the right leg and therefore, he is on Xarelto. MEDICATIONS: The patient takes at home, allopurinol 300 mg for gout, atorvastatin 10 mg for hyperlipidemia, Jardiance 10 mg daily for diabetes mellitus, famotidine 20 mg daily for GI, gabapentin 100 mg 3 times a day for neuropathy, insulin lispro 75/25, 40 units twice a day, lisinopril 2.5 mg for kidney protection, Xarelto 20 mg daily, and tamsulosin 0.4 mg daily. ALLERGIES: THE PATIENT IS ALLERGIC TO CONTRAST MEDIA AND SHRIMP. PHYSICAL EXAMINATION: GENERAL: The patient is alert and oriented x3. VITAL SIGNS: Temperature is 97.8, pulse of 82, respirations 16, blood pressure is 120/68. He is standing well at 96% on room air. HEENT: Normocephalic, atraumatic. Pupils are reactive. Dentition normal. CVS: S1 and S2 normal. Regular rate and rhythm. ABDOMEN: Nontender and nondistended. LUNGS: Good air entry lung bases. EXTREMITIES: No clubbing. Positive for 3+ edema in the right lower extremity. Girth is increased compared to the left lower extremities. LABORATORY VALUES: White count is 9.69, hemoglobin of 9.2, hematocrit 30.9. Indices, MCV 87, MCH of 25.9. Chemistry shows sodium 139, potassium 4.6, BUN of 39, creatinine of 1.88 with eGFR of 36, glucose was 214, calcium 10.4. BNP was 13.9. Urine was showed moderate bacteria. Coags are within normal limits. INR is 2.13. Serology coronavirus is pending. MICROBIOLOGY: None done. IMAGING STUDIES: Chest x-ray shows hypoinflated lungs, patchy opacity in the bilateral lower lung yang, left greater than right suggestive at the bases. Prominence of the cardiac silhouette. Central vascular crowding in low lung volumes and no acute other bony abnormalities. Lung V/Q scan shows intermediate probability for acute pulmonary embolism. The patient also has parenchymal disease in left lower quadrant. ASSESSMENT: Mr. Torito Russellers with: 1. Dizziness and giddiness. 2. Hypertensive episodes from possibly orthostasis. 3. History of deep vein thrombosis and pulmonary embolism. 4. Uncontrolled diabetes. 5. Macrocytic anemia. 6. Acute kidney injury. 7. Chronic kidney disease. PLAN: The patient had a V/Q scan with intermediate probability. He is currently on Xarelto. We will keep on the Xarelto 20 mg. The patient currently also not getting any fluids. We will go ahead and start him back on his IV fluids to re-perfuse the kidneys. Recheck his creatinine levels today and for his orthostasis, do orthostatic blood pressure. We will hold back on lisinopril at this time and also check iron panels to rule out iron deficiency and/or blood loss anemia. Further recommendation per clinical course. We will continue to monitor the patient. Insulin will be restarted and we will also recommend a hemoglobin A1c and thyroid panel. Possible causative factors could be Flomax or generalized dehydration or prerenal causes. Further recommendation per clinical course. MD CATHY Beverly/MODL /[id number]
[2019-08-16] MEDS: GABAPENTIN 100 MG CAP PO SCH ×2 (15:30→21:56)
--- NOTE | 2019-08-16 17:13 | NUR ---
Patient called this keno writer to alert that there was blood coming out of his IV. Patient's IV site was cleaned and covered with a clean, dry dressing. Patient was given another IV via the ultrasound machine with the warehouse logistics manager. Once patient was done he requested to go to the bathroom. Patient came out of bathroom and the new IV was now falling out. Patient was covered with a clean, dry dressing. This keno writer called the warehouse logistics manager to alert him again and he stated he would come try again as soon as he can.
[2019-08-16] MEDS ORDERED: ATORVASTATIN 10 MG TAB PO SCH (21:00)
[2019-08-17] VITALS: BP 137/80
[2019-08-17] MEDS: SODIUM CHLORIDE 0.9% 1000ML 1,000 ML IV SCH ×2 (01:20→14:25)
[2019-08-17 04:00] VITALS: BP 107/62
[2019-08-17 06:00] LABS: BASOPHILS # (AUTO) 0.1 (0.0-0.1); BASOPHILS % 0.7 % (0.0-1.0); EOSINOPHILS # (AUTO) 0.5 (0.0-0.4); EOSINOPHILS % 6.1 % (0.0-6.0); HEMATOCRIT 27.2 % (38.2-49.6); HEMOGLOBIN 8.1 g/dL (14.0-18.0); LYMPHOCYTES # (AUTO) 2.7 (1.0-3.2); LYMPHOCYTES % 30.6 % (18.0-39.1); MEAN CORPUSCULAR HEMOGLOBIN 25.8 pg (28-32); MEAN CORPUSCULAR HGB CONC 29.8 g/dL (31-35); MEAN CORPUSCULAR VOLUME 86.6 fL (81-99); MONOCYTES # (AUTO) 0.9 (0.2-0.8); MONOCYTES % 10.5 % (4.4-11.3); NEUTROPHILS # (AUTO) 4.5 (2.1-6.9); NEUTROPHILS % 51.8 % (38.7-80.0); PLATELET COUNT 238 x10e3/uL (140-360); RED BLOOD COUNT 3.14 x10e6/uL (4.3-5.7); RED CELL DISTRIBUTION WIDTH 14.8 % (11.7-14.4)
[2019-08-17 06:19] LABS: ANION GAP 13.3 mmol/L (8-16); CALCIUM 9.8 mg/dL (8.4-10.2); CREATININE, SERUM 1.45 mg/dL (0.72-1.25); POTASSIUM 4.3 mmol/L (3.5-5.1)
--- NOTE | 2019-08-17 07:29 | NUR ---
ASSUMED CARE. AAOX3. ACYANOTIC. RESTING IN BED. NO DISTRESS NOTED. DENIES PAIN. CALL LIGHT IN REACH. SIDE RAILS UP X2. BED LOW.
[2019-08-17] MEDS: INSULIN LISPRO 100 UNIT/1 ML 3ML VIAL SQ SCH ×3 (07:30→16:24)
[2019-08-17 07:35] LABS: % IRON SATURATION 7 % (15-50); IRON 22 ug/dL (65-175); TOTAL IRON BINDING CAPACITY 329 ug/dL (261-478); TRANSFERRIN 235 mg/dL (174-364)
[2019-08-17 07:45] LABS: ANISOCYTOSIS SLIGHT; HYPOCHROMASIA SLIGHT; PLATELET ESTIMATE ADEQUATE; PLATELET MORPHOLOGY COMMENT NORMAL; RBC MORPHOLOGY COMMENT NORMAL
[2019-08-17 08:00] VITALS: BP 146/79
[2019-08-17 08:21] VITALS: BP 146/79
--- NOTE | 2019-08-17 08:53 | Progress Note ---
DATE: 08/16/2019 SUBJECTIVE: A 64-year-old gentleman, who came in with dizziness, shortness of breath, currently feeling better, not as dizzy as before. He had volume depletion. CURRENT MEDICATIONS: Include allopurinol, atorvastatin, famotidine, gabapentin, tamsulosin, Xarelto, and lisinopril. OBJECTIVE: VITAL SIGNS: Temperature is 97.9, pulse of 80, respirations of 20, blood pressure is 107/62, pulse oximetry of 98%. HEENT: Normocephalic and atraumatic. Pupils are reactive. CVS: S1 and S2 normal. Regular rate and rhythm. ABDOMEN: Nontender, nondistended. EXTREMITIES: No clubbing, no cyanosis. Positive for edema more on the right side. LABORATORY VALUES: Today's white count is 8.75, hemoglobin of 8.1 and this is shifting towards iron deficiency. MICROBIOLOGY: None done. Serology; coronavirus is still pending. Urine had some bacteria. ASSESSMENT: Mr. Torito Russellers with, 1. Orthostatic hypotension. 2. Hypokalemia. 3. History of DVT with pulmonary embolism. 4. Uncontrolled diabetes mellitus. 5. Acute kidney injury on chronic kidney disease. PLAN: 1. VQ scan was negative. We will continue with Xarelto, still with history of PEs. 2. Continue with IV fluids. 3. Lisinopril can be stopped right now although the patient possibly has microalbuminuria. We will stop it because of the hypertensive problems. Further recommendation per clinical course. We will also do an iron panel for his iron deficiency and possible discharge today or early tomorrow. Charles Anthony MD ASS[facility]/MODL /[id number]
[2019-08-17] MEDS ORDERED: RIVAROXABAN 20 MG TABLET PO SCH (09:00)
[2019-08-17] MEDS ORDERED: TAMSULOSIN HCL 0.4 MG CAP PO SCH (09:00)
[2019-08-17] MEDS ORDERED: FAMOTIDINE 20 MG TAB PO SCH (09:00)
[2019-08-17] MEDS ORDERED: ALLOPURINOL 300 MG TAB PO SCH (09:00)
[2019-08-17] MEDS ORDERED: LISINOPRIL 2.5 MG TAB PO SCH (09:00)
[2019-08-17] MEDS ORDERED: (Empagliflozin (Jardiance) 10 MG) PO SCH (09:00)
[2019-08-17 11:46] VITALS: BP 126/76
--- NOTE | 2019-08-17 15:46 | NUR ---
PAGED FOR DR. PIZARRO AT APPROXIMATELY [id number] TO CLARIFY FOR DISCHARGE ORDERS. NO NEW ORDERS AT THIS TIME. AWAITING FOR DR. PIZARRO TO RETURN PAGE.
[2019-08-17 16:25] VITALS: BP 124/70
== END 2019-08-17 19:31 | disposition home or self-care (01) ==
LOC: ER 17:42 → ERHOLD 21:59 → MED/SURG 22:11
PROVIDERS: ADMIT Family Medicine; ATTEND Family Medicine
DX: I12.9 Hypertensive chronic kidney disease with stage 1 through stage 4 chronic kidney disease, or unspecified chronic kidney disease (principal); Z86.718 Personal history of other venous thrombosis and embolism; Z79.01 Long term (current) use of anticoagulants; D53.9 Nutritional anemia, unspecified; N17.9 Acute kidney failure, unspecified; E11.22 Type 2 diabetes mellitus with diabetic chronic kidney disease; N18.9 Chronic kidney disease, unspecified; Z79.4 Long term (current) use of insulin; E87.6 Hypokalemia; E78.5 Hyperlipidemia, unspecified; Z91.041 Radiographic dye allergy status; Z91.013 Allergy to seafood; E11.40 Type 2 diabetes mellitus with diabetic neuropathy, unspecified
CPT/HCPCS: 36415 ×3; 71045; 78582; 80048; 80053; 81001; 82550; 82553; 82948 ×3; 83036; 83540 ×2; 83880; 84443; 84466 ×2; 84484; 85025 ×2; 85610; 85730; 87635; 93005; 93971; 96361; 99284; G0378 ×3; J7030 ×2

== ENCOUNTER → 2020-04-16 | Outpatient (CLI) | payer OTHER ==
[~2020-04-16] MED LIST changes: +FAMOTIDINE20 MG PO; +FLOMAX0.4 MG PO; +HUMALOG MI100 UNIT/2; +JARDIANCE10 MG; +JARDIANCE10 MG PO; +XARELTO20 MG PO
== END ==
LOC: NM 07:56
PROVIDERS: ATTEND Family Medicine
DX: E83.52 Hypercalcemia (principal)
CPT/HCPCS: 78071; A9500

== ENCOUNTER → 2020-04-24 | Day surgery (SDC) | payer OTHER ==
[2020-04-19 11:44] LABS: BASOPHILS # (AUTO) 0.1 (0.0-0.1); BASOPHILS % 0.6 % (0.0-1.0); EOSINOPHILS # (AUTO) 0.2 (0.0-0.4); EOSINOPHILS % 1.6 % (0.0-6.0); HEMATOCRIT 38.4 % (38.2-49.6); HEMOGLOBIN 10.8 g/dL (14.0-18.0); LYMPHOCYTES # (AUTO) 1.5 (1.0-3.2); LYMPHOCYTES % 15.4 % (18.0-39.1); MEAN CORPUSCULAR HEMOGLOBIN 21.6 pg (28-32); MEAN CORPUSCULAR HGB CONC 28.1 g/dL (31-35); MEAN CORPUSCULAR VOLUME 76.8 fL (81-99); MONOCYTES # (AUTO) 0.8 (0.2-0.8); MONOCYTES % 8.5 % (4.4-11.3); NEUTROPHILS # (AUTO) 6.9 (2.1-6.9); NEUTROPHILS % 73.6 % (38.7-80.0); PLATELET COUNT 361 x10e3/uL (140-360); RED CELL DISTRIBUTION WIDTH 18.8 % (11.7-14.4)
[2020-04-19 11:54] LABS: INR 1.32; PROTHROMBIN TIME 17.3 seconds (11.9-14.5)
[2020-04-19 12:03] LABS: ALANINE AMINOTRANSFERASE 15 IU/L (0-55); ALBUMIN 2.6 g/dL (3.5-5.0); ALBUMIN/GLOBULIN RATIO 0.6 (0.8-2.0); ALKALINE PHOSPHATASE 105 IU/L (40-150); ANION GAP 13.2 mmol/L (8-16); BLOOD UREA NITROGEN 17 mg/dL (7-26); BUN/CREATININE RATIO 16 (6-25); CALCIUM 10.1 mg/dL (8.4-10.2); CARBON DIOXIDE 27 mmol/L (22-29); CHLORIDE 103 mmol/L (98-107); CREATININE, SERUM 1.08 mg/dL (0.72-1.25); EST GLOMERULAR FILTRATION RATE > 60 ML/MIN (60-); GLUCOSE 177 mg/dL (74-118); POTASSIUM 3.2 mmol/L (3.5-5.1); SODIUM 140 mmol/L (136-145)
[2020-04-19 13:32] LABS: HYPOCHROMASIA SLIGHT; PLATELET ESTIMATE SLIGHTLY INCREASED; RBC MORPHOLOGY COMMENT ABNORMAL
[2020-04-19 13:33] LABS: OVALOCYTES FEW; TARGET CELLS FEW
[2020-04-19 13:35] LABS: PLATELET MORPHOLOGY COMMENT FEW LARGE; TEAR DROP CELLS FEW
[2020-04-19 13:36] LABS: POLYCHROMASIA FEW
[2020-04-24] VITALS (11 sets, daily range): BP systolic 129–160; BP diastolic 71–88
[~2020-04-24] VITALS: Ht 175.3 cm; Wt 94.8 kg
[~2020-04-24] MED LIST changes: +DIPHENHYDRAMINE HCL INJ 50 MG/ML VIAL ONE; +FENTANYL CITRATE/PF 100MCG/2 ML INJ ONE; +HEPARIN SOD/SOD CHLORIDE 2,000 ML ONE; +IOPAMIDOL 370 MG/ML 200 ML INFUS..BTL INJ ONE; +LIDOCAINE HCL 2% LOCAL 20 ML VIAL ONE; +METHYLPREDNISOLONE SOD SUCC 125 MG/2ML VIAL ONE; +MIDAZOLAM HCL 2 MG/2 ML VIAL ONE; +SODIUM CHLORIDE 0.9% 1000ML 1,000 ML ONE
== END | disposition home or self-care (01) ==
LOC: CATH LAB 09:51
PROVIDERS: ATTEND Internal Medicine Interventional Cardiology
DX: I25.119 Atherosclerotic heart disease of native coronary artery with unspecified angina pectoris (principal); R94.31 Abnormal electrocardiogram [ECG] [EKG]; I82.511 Chronic embolism and thrombosis of right femoral vein; E78.5 Hyperlipidemia, unspecified; I73.9 Peripheral vascular disease, unspecified; R00.0 Tachycardia, unspecified; E78.00 Pure hypercholesterolemia, unspecified; E11.22 Type 2 diabetes mellitus with diabetic chronic kidney disease; N18.9 Chronic kidney disease, unspecified; Z91.041 Radiographic dye allergy status; Z01.812 Encounter for preprocedural laboratory examination; Z20.822 Contact with and (suspected) exposure to COVID-19; Z68.30 Body mass index [BMI] 30.0-30.9, adult; Z82.49 Family history of ischemic heart disease and other diseases of the circulatory system
CPT/HCPCS: 36415 ×2; 76937; 80053; 82948; 85025; 85610; 93454; C1769; C1887; J1200; J2001; J2250; J2930; J3010; J7030; Q9967; U0002; 99152

== ENCOUNTER 2020-05-07 11:09 | Inpatient (IN) | payer OTHER ==
[~2020-05-07] VITALS: Ht 175.3 cm; Wt 91.3 kg
[~2020-05-07 11:09] MED LIST changes: -DIPHENHYDRAMINE HCL INJ 50 MG/ML VIAL ONE; -FENTANYL CITRATE/PF 100MCG/2 ML INJ ONE; -HEPARIN SOD/SOD CHLORIDE 2,000 ML ONE; -IOPAMIDOL 370 MG/ML 200 ML INFUS..BTL INJ ONE; -LIDOCAINE HCL 2% LOCAL 20 ML VIAL ONE; -METHYLPREDNISOLONE SOD SUCC 125 MG/2ML VIAL ONE; -MIDAZOLAM HCL 2 MG/2 ML VIAL ONE; -SODIUM CHLORIDE 0.9% 1000ML 1,000 ML ONE
[2020-05-07 11:30] LABS: BASOPHILS # (AUTO) 0.1 (0.0-0.1); BASOPHILS % 0.2 % (0.0-1.0); EOSINOPHILS % 0.1 % (0.0-6.0); HEMATOCRIT 41.9 % (38.2-49.6); LYMPHOCYTES # (AUTO) 3.4 (1.0-3.2); LYMPHOCYTES % 14.8 % (18.0-39.1); MEAN CORPUSCULAR HEMOGLOBIN 21.1 pg (28-32); MEAN CORPUSCULAR HGB CONC 28.6 g/dL (31-35); MEAN CORPUSCULAR VOLUME 73.6 fL (81-99); MONOCYTES # (AUTO) 1.8 (0.2-0.8); MONOCYTES % 7.6 % (4.4-11.3); NEUTROPHILS # (AUTO) 17.6 (2.1-6.9); NEUTROPHILS % 76.3 % (38.7-80.0); PLATELET COUNT 606 x10e3/uL (140-360); RED BLOOD COUNT 5.69 x10e6/uL (4.3-5.7); RED CELL DISTRIBUTION WIDTH 20.4 % (11.7-14.4)
[2020-05-07 11:40] LABS: INR 1.25; PROTHROMBIN TIME 16.5 seconds (11.9-14.5)
[2020-05-07 11:41] LABS: PARTIAL THROMBOPLASTIN TIME 27.3 seconds (23.8-35.5)
[2020-05-07 11:48] LABS: ALBUMIN 2.6 g/dL (3.5-5.0); ALBUMIN/GLOBULIN RATIO 0.5 (0.8-2.0); ANION GAP 20.8 mmol/L (8-16); CALCIUM 11.3 mg/dL (8.4-10.2); CREATININE, SERUM 1.61 mg/dL (0.72-1.25); POTASSIUM 3.8 mmol/L (3.5-5.1)
[2020-05-07 11:50] LABS: MAGNESIUM 0.8 MG/DL (1.3-2.1)
[2020-05-07] MEDS ORDERED: SODIUM CHLORIDE 0.9% 1000ML 1,000 ML IV STA ×2 (11:52→12:55)
[2020-05-07] MEDS ORDERED: MAGNESIUM SULFATE 2GM/50ML 50 ML IV ONE (12:00)
[2020-05-07 12:29] LABS: CLARITY,URINE CLOUDY (CLEAR); COLOR,URINE RED (YELLOW); KETONES,URINE TRACE (NEGATIVE); LEUKOCYTE ESTERASE ,URINE LARGE (NEGATIVE); NITRITE,URINE NEGATIVE (NEGATIVE); PROTEIN,URINE DIPSTICK >=300 (NEGATIVE); URINE UROBILINOGEN 0.2 mg/dL (0.2 - 1)
[2020-05-07 12:41] LABS: BACTERIA,URINE RARE /HPF; EPITHELIAL CELLS,URINE FEW /LPF; RBC,URINE >50 /HPF (0-5); WBC,URINE (MAN) >50 /HPF (0-5)
[2020-05-07] MEDS ORDERED: FAMOTIDINE 20 MG/2 ML VIAL IV SCH (13:00)
[2020-05-07] MEDS ORDERED: ONDANSETRON HCL INJ 2MG/ML 2ML 2 MG/ML VIAL IV PRN (13:00)
[2020-05-07] MEDS ORDERED: DEXTROSE 50% SYRINGE 50 ML IV PRN (13:00)
[2020-05-07] MEDS: PIPER-TAZ 3.375 GM 50 ML IV SCH ×2 (13:04→18:05)
[2020-05-07] MEDS: SODIUM CHLORIDE 0.9% 1000ML 1,000 ML IV SCH (14:42)
[2020-05-07] MEDS ORDERED: ELIQUIS2.5 MG PO (14:51)
[2020-05-07 15:00] VITALS: BP 134/74
[2020-05-07] MEDS ORDERED: MAGNESIUM SULF 1GRAM/DEXTROSE 100 ML IV ONE (16:00)
[2020-05-07 16:15] VITALS: BP 134/74
[2020-05-07] MEDS ORDERED: INSULIN LISPRO 100 UNIT/1 ML 3ML VIAL SQ SCH (16:30)
[2020-05-07 20:00] VITALS: BP 129/69
[2020-05-07 20:27] LABS: CREATINE KINASE MB 0.9 ng/mL (0-5.0)
[2020-05-07 20:29] VITALS: BP 129/69
[2020-05-07] MEDS: FAMOTIDINE 20 MG TAB PO SCH (22:04)
[2020-05-07] MEDS: GABAPENTIN 100 MG CAP PO SCH (22:04)
[2020-05-07] MEDS: INSULIN LISPRO 100 UNIT/1 ML 3ML VIAL SQ SCH (22:19)
[2020-05-08] VITALS (8 sets, daily range): BP systolic 116–139; BP diastolic 55–73
[2020-05-08] MEDS: PIPER-TAZ 3.375 GM 50 ML IV SCH ×5 (00:45→23:50)
[2020-05-08 01:18] LABS: CREATINE KINASE MB 1.7 ng/mL (0-5.0)
[2020-05-08 05:30] LABS: BASOPHILS % 0.3 % (0.0-1.0); EOSINOPHILS # (AUTO) 0.1 (0.0-0.4); EOSINOPHILS % 0.6 % (0.0-6.0); HEMATOCRIT 30.6 % (38.2-49.6); LYMPHOCYTES % 14.5 % (18.0-39.1); MEAN CORPUSCULAR HGB CONC 29.1 g/dL (31-35); MEAN CORPUSCULAR VOLUME 72.2 fL (81-99); MONOCYTES # (AUTO) 1.4 (0.2-0.8); MONOCYTES % 10.1 % (4.4-11.3); NEUTROPHILS # (AUTO) 10.4 (2.1-6.9); NEUTROPHILS % 73.8 % (38.7-80.0); PLATELET COUNT 446 x10e3/uL (140-360); RED BLOOD COUNT 4.24 x10e6/uL (4.3-5.7); RED CELL DISTRIBUTION WIDTH 19.7 % (11.7-14.4)
[2020-05-08] MEDS: SODIUM CHLORIDE 0.9% 1000ML 1,000 ML IV SCH (05:47)
[2020-05-08 05:50] LABS: HEMOGLOBIN 8.9 g/dL (14.0-18.0)
[2020-05-08 06:09] LABS: ALANINE AMINOTRANSFERASE 11 IU/L (0-55); ALBUMIN 1.8 g/dL (3.5-5.0); ALBUMIN/GLOBULIN RATIO 0.5 (0.8-2.0); ALKALINE PHOSPHATASE 74 IU/L (40-150); ANION GAP 12.1 mmol/L (8-16); BLOOD UREA NITROGEN 34 mg/dL (7-26); BUN/CREATININE RATIO 29 (6-25); CALCIUM 9.1 mg/dL (8.4-10.2); CARBON DIOXIDE 27 mmol/L (22-29); CHLORIDE 103 mmol/L (98-107); CREATININE, SERUM 1.17 mg/dL (0.72-1.25); EST GLOMERULAR FILTRATION RATE > 60 ML/MIN (60-); GLUCOSE 138 mg/dL (74-118); POTASSIUM 3.1 mmol/L (3.5-5.1); SODIUM 139 mmol/L (136-145)
[2020-05-08 06:30] LABS: CREATINE KINASE MB 0.9 ng/mL (0-5.0)
[2020-05-08] MEDS ORDERED: POTASSIUM CHLORIDE 20 MEQ TAB CR PO ONE (07:30)
[2020-05-08] MEDS: INSULIN LISPRO 100 UNIT/1 ML 3ML VIAL SQ SCH ×4 (07:30→20:38)
[2020-05-08] MEDS ORDERED: MAGNESIUM SULFATE 2GM/50ML 50 ML IV ONE (07:30)
[2020-05-08] MEDS: GABAPENTIN 100 MG CAP PO SCH ×3 (08:39→20:32)
[2020-05-08] MEDS: TAMSULOSIN HCL 0.4 MG CAP PO SCH (08:39)
[2020-05-08] MEDS: ATORVASTATIN 10 MG TAB PO SCH (08:39)
[2020-05-08] MEDS: ALLOPURINOL 300 MG TAB PO SCH (08:39)
[2020-05-08] MEDS: INS LISP PRO/LISP HUMAN 75/25 100 UNITS/ML VIAL SC SCH ×2 (08:48→16:43)
[2020-05-08] MEDS: FAMOTIDINE 20 MG TAB PO SCH (20:32)
[2020-05-08] MEDS ORDERED: ACETAMINOPHEN 325 MG TAB PO PRN (23:30)
[2020-05-09] VITALS (8 sets, daily range): BP systolic 119–132; BP diastolic 61–80
[2020-05-09 05:06] LABS: BASOPHILS % 0.3 % (0.0-1.0); EOSINOPHILS # (AUTO) 0.2 (0.0-0.4); EOSINOPHILS % 1.3 % (0.0-6.0); HEMATOCRIT 31.1 % (38.2-49.6); HEMOGLOBIN 9.2 g/dL (14.0-18.0); LYMPHOCYTES # (AUTO) 2.1 (1.0-3.2); MEAN CORPUSCULAR HEMOGLOBIN 21.5 pg (28-32); MEAN CORPUSCULAR HGB CONC 29.6 g/dL (31-35); MEAN CORPUSCULAR VOLUME 72.8 fL (81-99); MONOCYTES # (AUTO) 1.5 (0.2-0.8); NEUTROPHILS # (AUTO) 9.8 (2.1-6.9); NEUTROPHILS % 71.7 % (38.7-80.0); PLATELET COUNT 419 x10e3/uL (140-360); RED BLOOD COUNT 4.27 x10e6/uL (4.3-5.7); RED CELL DISTRIBUTION WIDTH 19.8 % (11.7-14.4)
[2020-05-09 05:31] LABS: ALBUMIN 1.8 g/dL (3.5-5.0); ALBUMIN/GLOBULIN RATIO 0.5 (0.8-2.0); ANION GAP 13.1 mmol/L (8-16); CALCIUM 9.7 mg/dL (8.4-10.2); CREATININE, SERUM 1.23 mg/dL (0.72-1.25); POTASSIUM 3.1 mmol/L (3.5-5.1)
[2020-05-09] MEDS: PIPER-TAZ 3.375 GM 50 ML IV SCH (05:38)
[2020-05-09] MEDS ORDERED: POTASSIUM CHLORIDE 20 MEQ TAB CR PO ONE (07:30)
[2020-05-09] MEDS: INSULIN LISPRO 100 UNIT/1 ML 3ML VIAL SQ SCH ×4 (07:30→20:26)
[2020-05-09] MEDS ORDERED: MAGNESIUM SULFATE 2GM/50ML 50 ML IV ONE (07:30)
[2020-05-09] MEDS: INS LISP PRO/LISP HUMAN 75/25 100 UNITS/ML VIAL SC SCH ×2 (07:30→16:30)
[2020-05-09] MEDS: ATORVASTATIN 10 MG TAB PO SCH (08:33)
[2020-05-09] MEDS: TAMSULOSIN HCL 0.4 MG CAP PO SCH (08:33)
[2020-05-09] MEDS: ALLOPURINOL 300 MG TAB PO SCH (08:34)
[2020-05-09] MEDS: GABAPENTIN 100 MG CAP PO SCH ×3 (08:34→20:25)
[2020-05-09] MEDS: PIPERACILLIN/TAZOBAC 3.375 GM in SODIUM CHLORIDE 0.9% 50ML 50 ML IV SCH ×3 (12:20→23:14)
[2020-05-09] MEDS: FAMOTIDINE 20 MG TAB PO SCH (20:25)
[2020-05-10] VITALS (8 sets, daily range): BP systolic 115–144; BP diastolic 56–81
[2020-05-10 06:13] LABS: BASOPHILS # (AUTO) 0.1 (0.0-0.1); BASOPHILS % 0.4 % (0.0-1.0); EOSINOPHILS # (AUTO) 0.3 (0.0-0.4); EOSINOPHILS % 2.2 % (0.0-6.0); HEMATOCRIT 29.8 % (38.2-49.6); HEMOGLOBIN 8.7 g/dL (14.0-18.0); LYMPHOCYTES # (AUTO) 1.9 (1.0-3.2); LYMPHOCYTES % 16.4 % (18.0-39.1); MEAN CORPUSCULAR HEMOGLOBIN 21.5 pg (28-32); MEAN CORPUSCULAR HGB CONC 29.2 g/dL (31-35); MEAN CORPUSCULAR VOLUME 73.6 fL (81-99); MONOCYTES # (AUTO) 1.2 (0.2-0.8); MONOCYTES % 10.1 % (4.4-11.3); NEUTROPHILS # (AUTO) 8.1 (2.1-6.9); NEUTROPHILS % 70.2 % (38.7-80.0); PLATELET COUNT 371 x10e3/uL (140-360); RED BLOOD COUNT 4.05 x10e6/uL (4.3-5.7); RED CELL DISTRIBUTION WIDTH 19.8 % (11.7-14.4)
[2020-05-10 06:41] LABS: ALANINE AMINOTRANSFERASE 16 IU/L (0-55); ALBUMIN 1.7 g/dL (3.5-5.0); ALBUMIN/GLOBULIN RATIO 0.5 (0.8-2.0); ALKALINE PHOSPHATASE 95 IU/L (40-150); ANION GAP 12.3 mmol/L (8-16); BLOOD UREA NITROGEN 22 mg/dL (7-26); BUN/CREATININE RATIO 22 (6-25); CALCIUM 9.7 mg/dL (8.4-10.2); CARBON DIOXIDE 30 mmol/L (22-29); CHLORIDE 102 mmol/L (98-107); CREATININE, SERUM 1.01 mg/dL (0.72-1.25); EST GLOMERULAR FILTRATION RATE > 60 ML/MIN (60-); GLUCOSE 137 mg/dL (74-118); POTASSIUM 3.3 mmol/L (3.5-5.1); SODIUM 141 mmol/L (136-145)
[2020-05-10] MEDS: PIPERACILLIN/TAZOBAC 3.375 GM in SODIUM CHLORIDE 0.9% 50ML 50 ML IV SCH ×3 (06:47→17:21)
[2020-05-10 07:12] LABS: % IRON SATURATION 7 % (15-50); IRON 9 ug/dL (65-175); TOTAL IRON BINDING CAPACITY 133 ug/dL (261-478); TRANSFERRIN 95 mg/dL (174-364)
[2020-05-10] MEDS: INS LISP PRO/LISP HUMAN 75/25 100 UNITS/ML VIAL SC SCH ×2 (07:30→16:30)
[2020-05-10] MEDS: INSULIN LISPRO 100 UNIT/1 ML 3ML VIAL SQ SCH ×4 (07:30→21:21)
[2020-05-10] MEDS: TAMSULOSIN HCL 0.4 MG CAP PO SCH (09:46)
[2020-05-10] MEDS: GABAPENTIN 100 MG CAP PO SCH ×3 (09:47→20:30)
[2020-05-10] MEDS: ATORVASTATIN 10 MG TAB PO SCH (09:47)
[2020-05-10] MEDS: ALLOPURINOL 300 MG TAB PO SCH (09:47)
[2020-05-10] MEDS ORDERED: POTASSIUM CHLORIDE 20 MEQ TAB CR PO ONE ×2 (12:45→18:00)
[2020-05-10] MEDS ORDERED: MAGNESIUM SULFATE 2GM/50ML 50 ML IV ONE ×2 (12:45→18:00)
[2020-05-10] MEDS ORDERED: ONDANSETRON HCL 4 MG ORAL DISINTEGRATING TAB PO PRN (19:15)
[2020-05-10] MEDS: FAMOTIDINE 20 MG TAB PO SCH (21:19)
[2020-05-11] VITALS (8 sets, daily range): BP systolic 126–136; BP diastolic 66–88
[2020-05-11] MEDS: PIPERACILLIN/TAZOBAC 3.375 GM in SODIUM CHLORIDE 0.9% 50ML 50 ML IV SCH ×4 (00:38→17:47)
[2020-05-11 06:04] LABS: BASOPHILS % 0.3 % (0.0-1.0); EOSINOPHILS # (AUTO) 0.2 (0.0-0.4); EOSINOPHILS % 2.2 % (0.0-6.0); HEMATOCRIT 31.3 % (38.2-49.6); HEMOGLOBIN 9.1 g/dL (14.0-18.0); LYMPHOCYTES # (AUTO) 1.6 (1.0-3.2); MEAN CORPUSCULAR HEMOGLOBIN 21.1 pg (28-32); MEAN CORPUSCULAR HGB CONC 29.1 g/dL (31-35); MEAN CORPUSCULAR VOLUME 72.5 fL (81-99); MONOCYTES # (AUTO) 1.1 (0.2-0.8); MONOCYTES % 10.4 % (4.4-11.3); NEUTROPHILS # (AUTO) 7.9 (2.1-6.9); NEUTROPHILS % 71.6 % (38.7-80.0); PLATELET COUNT 390 x10e3/uL (140-360); RED BLOOD COUNT 4.32 x10e6/uL (4.3-5.7); RED CELL DISTRIBUTION WIDTH 19.7 % (11.7-14.4)
[2020-05-11 06:30] LABS: ALANINE AMINOTRANSFERASE 15 IU/L (0-55); ALBUMIN 1.7 g/dL (3.5-5.0); ALBUMIN/GLOBULIN RATIO 0.4 (0.8-2.0); ALKALINE PHOSPHATASE 102 IU/L (40-150); ANION GAP 9.6 mmol/L (8-16); BLOOD UREA NITROGEN 19 mg/dL (7-26); BUN/CREATININE RATIO 19 (6-25); CALCIUM 10.2 mg/dL (8.4-10.2); CARBON DIOXIDE 30 mmol/L (22-29); CHLORIDE 104 mmol/L (98-107); CREATININE, SERUM 0.99 mg/dL (0.72-1.25); EST GLOMERULAR FILTRATION RATE > 60 ML/MIN (60-); GLUCOSE 141 mg/dL (74-118); POTASSIUM 3.6 mmol/L (3.5-5.1); SODIUM 140 mmol/L (136-145)
[2020-05-11] MEDS ORDERED: MAGNESIUM SULFATE 2GM/50ML 50 ML IV ONE ×2 (07:15→18:00)
[2020-05-11] MEDS: INSULIN LISPRO 100 UNIT/1 ML 3ML VIAL SQ SCH ×4 (07:30→21:00)
[2020-05-11] MEDS ORDERED: POTASSIUM CHLORIDE 20 MEQ TAB CR PO ONE (07:45)
[2020-05-11] MEDS: INS LISP PRO/LISP HUMAN 75/25 100 UNITS/ML VIAL SC SCH ×2 (08:00→16:30)
[2020-05-11] MEDS: TAMSULOSIN HCL 0.4 MG CAP PO SCH (08:56)
[2020-05-11] MEDS: GABAPENTIN 100 MG CAP PO SCH ×3 (08:56→21:17)
[2020-05-11] MEDS: ATORVASTATIN 10 MG TAB PO SCH (08:56)
[2020-05-11] MEDS: ALLOPURINOL 300 MG TAB PO SCH (08:56)
[2020-05-11] MEDS: POTASSIUM CHLORIDE 20 MEQ TAB CR PO SCH (09:00)
[2020-05-11] MEDS: FAMOTIDINE 20 MG TAB PO SCH (21:17)
[2020-05-12] VITALS (8 sets, daily range): BP systolic 124–152; BP diastolic 67–79
[2020-05-12] MEDS ORDERED: SODIUM CHLORIDE 0.9% 250ML 250 ML ONE (00:28)
[2020-05-12] MEDS: PIPERACILLIN/TAZOBAC 3.375 GM in SODIUM CHLORIDE 0.9% 50ML 50 ML IV SCH ×4 (05:31→18:00)
[2020-05-12 06:40] LABS: BASOPHILS # (AUTO) 0.1 (0.0-0.1); BASOPHILS % 0.4 % (0.0-1.0); EOSINOPHILS # (AUTO) 0.1 (0.0-0.4); HEMATOCRIT 32.9 % (38.2-49.6); HEMOGLOBIN 9.4 g/dL (14.0-18.0); LYMPHOCYTES # (AUTO) 1.4 (1.0-3.2); LYMPHOCYTES % 10.3 % (18.0-39.1); MEAN CORPUSCULAR HEMOGLOBIN 20.8 pg (28-32); MEAN CORPUSCULAR HGB CONC 28.6 g/dL (31-35); MEAN CORPUSCULAR VOLUME 72.9 fL (81-99); MONOCYTES # (AUTO) 1.5 (0.2-0.8); MONOCYTES % 11.3 % (4.4-11.3); NEUTROPHILS # (AUTO) 10.4 (2.1-6.9); NEUTROPHILS % 76.5 % (38.7-80.0); PLATELET COUNT 409 x10e3/uL (140-360); RED BLOOD COUNT 4.51 x10e6/uL (4.3-5.7); RED CELL DISTRIBUTION WIDTH 19.9 % (11.7-14.4)
[2020-05-12 07:05] LABS: ALANINE AMINOTRANSFERASE 16 IU/L (0-55); ALBUMIN 1.8 g/dL (3.5-5.0); ALBUMIN/GLOBULIN RATIO 0.5 (0.8-2.0); ALKALINE PHOSPHATASE 109 IU/L (40-150); ANION GAP 13.7 mmol/L (8-16); BLOOD UREA NITROGEN 16 mg/dL (7-26); BUN/CREATININE RATIO 16 (6-25); CALCIUM 10.6 mg/dL (8.4-10.2); CARBON DIOXIDE 28 mmol/L (22-29); CHLORIDE 103 mmol/L (98-107); CREATININE, SERUM 0.97 mg/dL (0.72-1.25); EST GLOMERULAR FILTRATION RATE > 60 ML/MIN (60-); GLUCOSE 70 mg/dL (74-118); POTASSIUM 3.7 mmol/L (3.5-5.1); SODIUM 141 mmol/L (136-145)
[2020-05-12 07:10] LABS: MAGNESIUM 1.1 MG/DL (1.3-2.1)
[2020-05-12] MEDS: INS LISP PRO/LISP HUMAN 75/25 100 UNITS/ML VIAL SC SCH ×2 (07:30→16:30)
[2020-05-12] MEDS: INSULIN LISPRO 100 UNIT/1 ML 3ML VIAL SQ SCH ×4 (07:30→21:00)
[2020-05-12] MEDS ORDERED: MAGNESIUM SULFATE 2GM/50ML 50 ML IV ONE ×2 (07:45→23:30)
[2020-05-12] MEDS: ALLOPURINOL 300 MG TAB PO SCH (09:35)
[2020-05-12] MEDS: ATORVASTATIN 10 MG TAB PO SCH (09:35)
[2020-05-12] MEDS: TAMSULOSIN HCL 0.4 MG CAP PO SCH (09:35)
[2020-05-12] MEDS: GABAPENTIN 100 MG CAP PO SCH ×3 (09:35→21:43)
[2020-05-12] MEDS: POTASSIUM CHLORIDE 20 MEQ TAB CR PO SCH (09:36)
[2020-05-12] MEDS: FAMOTIDINE 20 MG TAB PO SCH (21:43)
[2020-05-13] VITALS (7 sets, daily range): BP systolic 115–145; BP diastolic 62–76
[2020-05-13] MEDS: PIPERACILLIN/TAZOBAC 3.375 GM in SODIUM CHLORIDE 0.9% 50ML 50 ML IV SCH ×4 (01:46→18:00)
[2020-05-13] MEDS: SODIUM CHLORIDE 0.9% 1000ML 1,000 ML IV SCH ×2 (01:46→19:30)
[2020-05-13 06:33] LABS: BASOPHILS # (AUTO) 0.1 (0.0-0.1); BASOPHILS % 0.4 % (0.0-1.0); EOSINOPHILS # (AUTO) 0.2 (0.0-0.4); EOSINOPHILS % 1.2 % (0.0-6.0); HEMATOCRIT 29.4 % (38.2-49.6); HEMOGLOBIN 8.4 g/dL (14.0-18.0); LYMPHOCYTES # (AUTO) 1.4 (1.0-3.2); LYMPHOCYTES % 10.6 % (18.0-39.1); MEAN CORPUSCULAR HEMOGLOBIN 21.1 pg (28-32); MEAN CORPUSCULAR HGB CONC 28.6 g/dL (31-35); MEAN CORPUSCULAR VOLUME 73.7 fL (81-99); MONOCYTES # (AUTO) 1.7 (0.2-0.8); MONOCYTES % 12.8 % (4.4-11.3); NEUTROPHILS # (AUTO) 10.1 (2.1-6.9); NEUTROPHILS % 74.5 % (38.7-80.0); PLATELET COUNT 378 x10e3/uL (140-360); RED BLOOD COUNT 3.99 x10e6/uL (4.3-5.7); RED CELL DISTRIBUTION WIDTH 19.5 % (11.7-14.4)
[2020-05-13] MEDS: INSULIN LISPRO 100 UNIT/1 ML 3ML VIAL SQ SCH ×4 (07:30→21:00)
[2020-05-13] MEDS: INS LISP PRO/LISP HUMAN 75/25 100 UNITS/ML VIAL SC SCH ×2 (07:30→16:30)
[2020-05-13 07:35] LABS: ALANINE AMINOTRANSFERASE 16 IU/L (0-55); ALBUMIN 1.7 g/dL (3.5-5.0); ALBUMIN/GLOBULIN RATIO 0.4 (0.8-2.0); ALKALINE PHOSPHATASE 115 IU/L (40-150); ANION GAP 10.8 mmol/L (8-16); CALCIUM 10.5 mg/dL (8.4-10.2); CARBON DIOXIDE 29 mmol/L (22-29); CHLORIDE 97 mmol/L (98-107); MAGNESIUM 1.6 MG/DL (1.3-2.1); POTASSIUM 3.8 mmol/L (3.5-5.1); SODIUM 133 mmol/L (136-145)
[2020-05-13 07:48] LABS: BLOOD UREA NITROGEN 20 mg/dL (7-26); BUN/CREATININE RATIO 17 (6-25); EST GLOMERULAR FILTRATION RATE > 60 ML/MIN (60-); GLUCOSE 260 mg/dL (74-118)
[2020-05-13] MEDS: TAMSULOSIN HCL 0.4 MG CAP PO SCH (08:36)
[2020-05-13] MEDS: ATORVASTATIN 10 MG TAB PO SCH (08:36)
[2020-05-13] MEDS: GABAPENTIN 100 MG CAP PO SCH ×3 (08:36→21:00)
[2020-05-13] MEDS: MAGNESIUM OXIDE 400 MG TAB PO SCH ×3 (08:36→21:00)
[2020-05-13] MEDS: ALLOPURINOL 300 MG TAB PO SCH (08:36)
[2020-05-13] MEDS: POTASSIUM CHLORIDE 20 MEQ TAB CR PO SCH (08:37)
[2020-05-13] MEDS: METOPROLOL TARTRATE 25 MG TAB PO SCH ×2 (12:00→18:00)
[2020-05-13] MEDS: FAMOTIDINE 20 MG TAB PO SCH (21:00)
[2020-05-14] VITALS (8 sets, daily range): BP systolic 110–149; BP diastolic 61–78
[2020-05-14] MEDS: METOPROLOL TARTRATE 25 MG TAB PO SCH ×4 (01:00→18:20)
[2020-05-14] MEDS: PIPERACILLIN/TAZOBAC 3.375 GM in SODIUM CHLORIDE 0.9% 50ML 50 ML IV SCH ×4 (01:03→18:19)
[2020-05-14 05:32] LABS: BASOPHILS # (AUTO) 0.1 (0.0-0.1); BASOPHILS % 0.4 % (0.0-1.0); EOSINOPHILS # (AUTO) 0.3 (0.0-0.4); EOSINOPHILS % 2.2 % (0.0-6.0); HEMATOCRIT 28.8 % (38.2-49.6); HEMOGLOBIN 8.3 g/dL (14.0-18.0); LYMPHOCYTES # (AUTO) 1.5 (1.0-3.2); LYMPHOCYTES % 12.2 % (18.0-39.1); MEAN CORPUSCULAR HEMOGLOBIN 20.9 pg (28-32); MEAN CORPUSCULAR HGB CONC 28.8 g/dL (31-35); MEAN CORPUSCULAR VOLUME 72.5 fL (81-99); MONOCYTES # (AUTO) 1.2 (0.2-0.8); MONOCYTES % 9.6 % (4.4-11.3); NEUTROPHILS # (AUTO) 9.2 (2.1-6.9); NEUTROPHILS % 75.2 % (38.7-80.0); PLATELET COUNT 362 x10e3/uL (140-360); RED BLOOD COUNT 3.97 x10e6/uL (4.3-5.7); RED CELL DISTRIBUTION WIDTH 19.4 % (11.7-14.4)
[2020-05-14 05:49] LABS: ALANINE AMINOTRANSFERASE 15 IU/L (0-55); ALBUMIN 1.6 g/dL (3.5-5.0); ALBUMIN/GLOBULIN RATIO 0.4 (0.8-2.0); ALKALINE PHOSPHATASE 96 IU/L (40-150); ANION GAP 10.7 mmol/L (8-16); BLOOD UREA NITROGEN 20 mg/dL (7-26); BUN/CREATININE RATIO 17 (6-25); CALCIUM 10.2 mg/dL (8.4-10.2); CARBON DIOXIDE 31 mmol/L (22-29); CHLORIDE 98 mmol/L (98-107); CREATININE, SERUM 1.21 mg/dL (0.72-1.25); EST GLOMERULAR FILTRATION RATE > 60 ML/MIN (60-); GLUCOSE 151 mg/dL (74-118); PHOSPHORUS 2.2 MG/DL (2.3-4.7); POTASSIUM 3.7 mmol/L (3.5-5.1); SODIUM 136 mmol/L (136-145)
[2020-05-14] MEDS ORDERED: MAGNESIUM SULFATE 2GM/50ML 50 ML IV ONE (06:15)
[2020-05-14] MEDS: INSULIN LISPRO 100 UNIT/1 ML 3ML VIAL SQ SCH ×4 (07:30→20:51)
[2020-05-14] MEDS: INS LISP PRO/LISP HUMAN 75/25 100 UNITS/ML VIAL SC SCH ×2 (08:00→16:30)
[2020-05-14] MEDS: TAMSULOSIN HCL 0.4 MG CAP PO SCH (09:46)
[2020-05-14] MEDS: GABAPENTIN 100 MG CAP PO SCH ×3 (09:46→20:50)
[2020-05-14] MEDS: POTASSIUM CHLORIDE 20 MEQ TAB CR PO SCH (09:46)
[2020-05-14] MEDS: MAGNESIUM OXIDE 400 MG TAB PO SCH ×3 (09:46→20:50)
[2020-05-14] MEDS: ALLOPURINOL 300 MG TAB PO SCH (09:46)
[2020-05-14] MEDS: ATORVASTATIN 10 MG TAB PO SCH (09:46)
[2020-05-14] MEDS: SODIUM CHLORIDE 0.9% 1000ML 1,000 ML IV SCH (15:30)
[2020-05-14] MEDS: FAMOTIDINE 20 MG TAB PO SCH (20:50)
[2020-05-15] VITALS (8 sets, daily range): BP systolic 101–140; BP diastolic 66–78
[2020-05-15] MEDS: PIPERACILLIN/TAZOBAC 3.375 GM in SODIUM CHLORIDE 0.9% 50ML 50 ML IV SCH ×4 (01:18→18:17)
[2020-05-15] MEDS: METOPROLOL TARTRATE 25 MG TAB PO SCH ×4 (01:21→18:17)
[2020-05-15] MEDS: INSULIN LISPRO 100 UNIT/1 ML 3ML VIAL SQ SCH ×4 (07:30→20:37)
[2020-05-15] MEDS: INS LISP PRO/LISP HUMAN 75/25 100 UNITS/ML VIAL SC SCH ×2 (07:30→16:30)
[2020-05-15] MEDS: TAMSULOSIN HCL 0.4 MG CAP PO SCH (09:09)
[2020-05-15] MEDS: ATORVASTATIN 10 MG TAB PO SCH (09:09)
[2020-05-15] MEDS: GABAPENTIN 100 MG CAP PO SCH ×3 (09:09→21:12)
[2020-05-15] MEDS: MAGNESIUM OXIDE 400 MG TAB PO SCH ×3 (09:09→21:12)
[2020-05-15] MEDS: POTASSIUM CHLORIDE 20 MEQ TAB CR PO SCH (09:10)
[2020-05-15] MEDS: ALLOPURINOL 300 MG TAB PO SCH (09:10)
[2020-05-15] MEDS: SODIUM CHLORIDE 0.9% 1000ML 1,000 ML IV SCH (11:30)
[2020-05-15 12:51] LABS: ALBUMIN 1.8 g/dL (3.5-5.0); ALBUMIN/GLOBULIN RATIO 0.4 (0.8-2.0); ANION GAP 15.5 mmol/L (8-16); CALCIUM 11.3 mg/dL (8.4-10.2); CREATININE, SERUM 1.33 mg/dL (0.72-1.25); MAGNESIUM 1.3 MG/DL (1.3-2.1); POTASSIUM 3.5 mmol/L (3.5-5.1)
[2020-05-15] MEDS: BENZONATATE 100 MG CAP PO SCH (21:12)
[2020-05-15] MEDS: FAMOTIDINE 20 MG TAB PO SCH (21:12)
[2020-05-16] VITALS (7 sets, daily range): BP systolic 110–136; BP diastolic 49–94
[2020-05-16] MEDS: PIPERACILLIN/TAZOBAC 3.375 GM in SODIUM CHLORIDE 0.9% 50ML 50 ML IV SCH ×4 (02:32→17:58)
[2020-05-16] MEDS: METOPROLOL TARTRATE 25 MG TAB PO SCH ×4 (02:33→17:59)
[2020-05-16 06:22] LABS: BASOPHILS # (AUTO) 0.1 (0.0-0.1); BASOPHILS % 0.4 % (0.0-1.0); EOSINOPHILS # (AUTO) 0.2 (0.0-0.4); EOSINOPHILS % 1.2 % (0.0-6.0); HEMATOCRIT 32.7 % (38.2-49.6); HEMOGLOBIN 9.2 g/dL (14.0-18.0); LYMPHOCYTES # (AUTO) 2.2 (1.0-3.2); LYMPHOCYTES % 14.1 % (18.0-39.1); MEAN CORPUSCULAR HEMOGLOBIN 20.3 pg (28-32); MEAN CORPUSCULAR HGB CONC 28.1 g/dL (31-35); MONOCYTES # (AUTO) 1.4 (0.2-0.8); MONOCYTES % 8.8 % (4.4-11.3); NEUTROPHILS # (AUTO) 11.8 (2.1-6.9); NEUTROPHILS % 74.9 % (38.7-80.0); PLATELET COUNT 512 x10e3/uL (140-360); RED BLOOD COUNT 4.54 x10e6/uL (4.3-5.7); RED CELL DISTRIBUTION WIDTH 19.9 % (11.7-14.4)
[2020-05-16 06:49] LABS: ALBUMIN 1.7 g/dL (3.5-5.0); ALBUMIN/GLOBULIN RATIO 0.3 (0.8-2.0); ANION GAP 12.4 mmol/L (8-16); CALCIUM 11.2 mg/dL (8.4-10.2); CREATININE, SERUM 1.44 mg/dL (0.72-1.25); MAGNESIUM 1.2 MG/DL (1.3-2.1); POTASSIUM 3.4 mmol/L (3.5-5.1)
[2020-05-16] MEDS: INS LISP PRO/LISP HUMAN 75/25 100 UNITS/ML VIAL SC SCH ×2 (07:30→17:27)
[2020-05-16] MEDS: INSULIN LISPRO 100 UNIT/1 ML 3ML VIAL SQ SCH ×4 (07:30→21:00)
[2020-05-16] MEDS: TAMSULOSIN HCL 0.4 MG CAP PO SCH (09:20)
[2020-05-16] MEDS: ATORVASTATIN 10 MG TAB PO SCH (09:21)
[2020-05-16] MEDS: ALLOPURINOL 300 MG TAB PO SCH (09:21)
[2020-05-16] MEDS: MAGNESIUM OXIDE 400 MG TAB PO SCH ×3 (09:21→22:20)
[2020-05-16] MEDS: BENZONATATE 100 MG CAP PO SCH ×3 (09:21→21:00)
[2020-05-16] MEDS: POTASSIUM CHLORIDE 20 MEQ TAB CR PO SCH (09:21)
[2020-05-16] MEDS: GABAPENTIN 100 MG CAP PO SCH ×3 (09:21→22:20)
[2020-05-16] MEDS: SODIUM CHLORIDE 0.9% 1000ML 1,000 ML IV SCH (09:24)
[2020-05-16] MEDS ORDERED: PIPERACILLIN/TAZOBAC 3.375 GM VIAL ONE (11:37)
[2020-05-16] MEDS: FAMOTIDINE 20 MG TAB PO SCH (22:20)
[2020-05-17] VITALS (8 sets, daily range): BP systolic 83–155; BP diastolic 52–76
[2020-05-17] MEDS: METOPROLOL TARTRATE 25 MG TAB PO SCH ×4 (01:03→17:25)
[2020-05-17] MEDS: PIPERACILLIN/TAZOBAC 3.375 GM in SODIUM CHLORIDE 0.9% 50ML 50 ML IV SCH ×3 (01:03→12:50)
[2020-05-17] MEDS: SODIUM CHLORIDE 0.9% 1000ML 1,000 ML IV SCH ×3 (03:30→23:30)
[2020-05-17] MEDS ORDERED: DIPHENOXYLATE/ATROPINE TAB PO ONE (07:00)
[2020-05-17] MEDS: INSULIN LISPRO 100 UNIT/1 ML 3ML VIAL SQ SCH ×4 (07:30→21:00)
[2020-05-17] MEDS: BENZONATATE 100 MG CAP PO SCH ×3 (09:00→21:00)
[2020-05-17] MEDS: TAMSULOSIN HCL 0.4 MG CAP PO SCH (09:26)
[2020-05-17] MEDS: POTASSIUM CHLORIDE 20 MEQ TAB CR PO SCH (09:27)
[2020-05-17] MEDS: ATORVASTATIN 10 MG TAB PO SCH (09:27)
[2020-05-17] MEDS: GABAPENTIN 100 MG CAP PO SCH ×2 (09:27→15:07)
[2020-05-17] MEDS: MAGNESIUM OXIDE 400 MG TAB PO SCH ×3 (09:27→22:54)
[2020-05-17] MEDS: ALLOPURINOL 300 MG TAB PO SCH (09:28)
[2020-05-17] MEDS: INS LISP PRO/LISP HUMAN 75/25 100 UNITS/ML VIAL SC SCH ×2 (10:03→17:33)
[2020-05-17] MEDS ORDERED: POTASSIUM CHLORIDE 20 MEQ TAB CR PO STA (18:39)
[2020-05-17] MEDS: FAMOTIDINE 20 MG TAB PO SCH (22:54)
[2020-05-17] MEDS ORDERED: POTASSIUM CHLORIDE 20 MEQ TAB CR PO ONE (23:09)
[2020-05-18] VITALS (8 sets, daily range): BP systolic 102–134; BP diastolic 51–78
[2020-05-18] MEDS: SODIUM CHLORIDE 0.9% 1000ML 1,000 ML IV SCH ×2 (05:07→23:10)
[2020-05-18] MEDS: METOPROLOL TARTRATE 25 MG TAB PO SCH ×4 (06:00→17:23)
[2020-05-18 07:25] LABS: BASOPHILS # (AUTO) 0.1 (0.0-0.1); BASOPHILS % 0.4 % (0.0-1.0); EOSINOPHILS # (AUTO) 0.3 (0.0-0.4); EOSINOPHILS % 2.6 % (0.0-6.0); HEMATOCRIT 30.3 % (38.2-49.6); HEMOGLOBIN 8.6 g/dL (14.0-18.0); LYMPHOCYTES # (AUTO) 1.5 (1.0-3.2); LYMPHOCYTES % 13.2 % (18.0-39.1); MEAN CORPUSCULAR HEMOGLOBIN 20.6 pg (28-32); MEAN CORPUSCULAR HGB CONC 28.4 g/dL (31-35); MEAN CORPUSCULAR VOLUME 72.7 fL (81-99); MONOCYTES # (AUTO) 1.1 (0.2-0.8); MONOCYTES % 9.8 % (4.4-11.3); NEUTROPHILS # (AUTO) 8.5 (2.1-6.9); NEUTROPHILS % 73.6 % (38.7-80.0); PLATELET COUNT 521 x10e3/uL (140-360); RED BLOOD COUNT 4.17 x10e6/uL (4.3-5.7); RED CELL DISTRIBUTION WIDTH 19.7 % (11.7-14.4)
[2020-05-18] MEDS: INS LISP PRO/LISP HUMAN 75/25 100 UNITS/ML VIAL SC SCH ×2 (07:30→16:30)
[2020-05-18] MEDS: INSULIN LISPRO 100 UNIT/1 ML 3ML VIAL SQ SCH ×4 (07:30→21:00)
[2020-05-18 08:08] LABS: ALBUMIN 1.7 g/dL (3.5-5.0); ALBUMIN/GLOBULIN RATIO 0.4 (0.8-2.0); CALCIUM 11.2 mg/dL (8.4-10.2); CREATININE, SERUM 1.23 mg/dL (0.72-1.25); MAGNESIUM 1.2 MG/DL (1.3-2.1)
[2020-05-18] MEDS: MAGNESIUM OXIDE 400 MG TAB PO SCH ×3 (08:40→22:09)
[2020-05-18] MEDS: TAMSULOSIN HCL 0.4 MG CAP PO SCH (08:41)
[2020-05-18] MEDS: ATORVASTATIN 10 MG TAB PO SCH (08:41)
[2020-05-18] MEDS: ALLOPURINOL 300 MG TAB PO SCH (08:41)
[2020-05-18] MEDS: BENZONATATE 100 MG CAP PO SCH ×3 (08:41→22:09)
[2020-05-18] MEDS: DIPHENOXYLATE/ATROPINE TAB PO PRN ×2 (08:41→23:33)
[2020-05-18] MEDS ORDERED: PAMIDRONATE DISODIUM 60 MG in SODIUM CHLORIDE 0.9% 1000ML 1,000 ML IV ONE (14:00)
[2020-05-18] MEDS: HEPARIN SOD (PORCINE) 5,000 UNIT/ML VIAL SC SCH (21:00)
[2020-05-18] MEDS: FAMOTIDINE 20 MG TAB PO SCH (22:09)
[2020-05-19] VITALS: BP 143/70
[2020-05-19] MEDS: METOPROLOL TARTRATE 25 MG TAB PO SCH ×3 (02:22→10:43)
[2020-05-19 04:00] VITALS: BP 112/48
[2020-05-19 04:28] LABS: BASOPHILS % 0.5 % (0.0-1.0); EOSINOPHILS # (AUTO) 0.2 (0.0-0.4); EOSINOPHILS % 3.2 % (0.0-6.0); HEMATOCRIT 24.9 % (38.2-49.6); LYMPHOCYTES # (AUTO) 1.5 (1.0-3.2); LYMPHOCYTES % 19.3 % (18.0-39.1); MEAN CORPUSCULAR HEMOGLOBIN 20.3 pg (28-32); MEAN CORPUSCULAR HGB CONC 28.1 g/dL (31-35); MEAN CORPUSCULAR VOLUME 72.2 fL (81-99); MONOCYTES # (AUTO) 0.7 (0.2-0.8); MONOCYTES % 9.1 % (4.4-11.3); NEUTROPHILS # (AUTO) 5.1 (2.1-6.9); NEUTROPHILS % 67.5 % (38.7-80.0); PLATELET COUNT 447 x10e3/uL (140-360); RED BLOOD COUNT 3.45 x10e6/uL (4.3-5.7); RED CELL DISTRIBUTION WIDTH 19.8 % (11.7-14.4)
[2020-05-19 04:46] LABS: ALBUMIN 1.5 g/dL (3.5-5.0); ALBUMIN/GLOBULIN RATIO 0.4 (0.8-2.0); CALCIUM 10.6 mg/dL (8.4-10.2); CREATININE, SERUM 1.3 mg/dL (0.72-1.25)
[2020-05-19] MEDS: SODIUM CHLORIDE 0.9% 1000ML 1,000 ML IV SCH (05:30)
[2020-05-19] MEDS: INSULIN LISPRO 100 UNIT/1 ML 3ML VIAL SQ SCH ×2 (07:30→11:30)
[2020-05-19] MEDS: INS LISP PRO/LISP HUMAN 75/25 100 UNITS/ML VIAL SC SCH (07:30)
[2020-05-19 08:45] VITALS: BP 112/48
[2020-05-19] MEDS: BENZONATATE 100 MG CAP PO SCH (09:00)
[2020-05-19] MEDS: TAMSULOSIN HCL 0.4 MG CAP PO SCH (09:00)
[2020-05-19] MEDS: ATORVASTATIN 10 MG TAB PO SCH (09:00)
[2020-05-19] MEDS: HEPARIN SOD (PORCINE) 5,000 UNIT/ML VIAL SC SCH (09:00)
[2020-05-19] MEDS: MAGNESIUM OXIDE 400 MG TAB PO SCH (09:00)
[2020-05-19] MEDS ORDERED: ASPIRIN 81 MG ENTERIC COATED PO SCH (09:00)
[2020-05-19] MEDS: ALLOPURINOL 300 MG TAB PO SCH (09:00)
[2020-05-19 09:51] VITALS: BP 127/69
[2020-05-19 13:07] VITALS: BP 108/61
== END 2020-05-19 14:55 | disposition home or self-care (01) | DRG 871 ==
LOC: ER 11:17 → ERHOLD 12:58 → MED/SURG3 14:59
PROVIDERS: ADMIT Family Medicine; ATTEND Family Medicine
DX: A41.9 Sepsis, unspecified organism (principal); I50.31 Acute diastolic (congestive) heart failure; N17.9 Acute kidney failure, unspecified; I13.0 Hypertensive heart and chronic kidney disease with heart failure and stage 1 through stage 4 chronic kidney disease, or unspecified chronic kidney disease; N13.6 Pyonephrosis; E83.42 Hypomagnesemia; R55 Syncope and collapse; E83.52 Hypercalcemia; E11.22 Type 2 diabetes mellitus with diabetic chronic kidney disease; Z91.041 Radiographic dye allergy status; Z91.013 Allergy to seafood; Z86.718 Personal history of other venous thrombosis and embolism; E88.09 Other disorders of plasma-protein metabolism, not elsewhere classified; E87.6 Hypokalemia; I25.10 Atherosclerotic heart disease of native coronary artery without angina pectoris; J40 Bronchitis, not specified as acute or chronic; D50.9 Iron deficiency anemia, unspecified; N18.30 Chronic kidney disease, stage 3 unspecified; Z20.822 Contact with and (suspected) exposure to COVID-19
CPT/HCPCS: 36415; 70450; 71045; 71250; 72125; 74176; 80053; 81001; 82550; 82553; 82948; 83540; 83605; 83735; 83880; 83970; 84100; 84165; 84466; 84484; 85025; 85610; 85730; 87040; 87086; 93005; 93306; 99285; J1644; J1815; J2430; J2543; J3475; J7030; J7050; U0002

== ENCOUNTER 2020-05-28 13:03 | Inpatient (IN) | payer OTHER ==
[~2020-05-28] VITALS: Ht 175.3 cm; Wt 88.6 kg
[~2020-05-28 13:03] MED LIST changes: +ELIQUIS2.5 MG PO
[2020-05-28] MEDS ORDERED: SODIUM CHLORIDE 0.9% 1000ML 1,000 ML IV STA ×2 (13:23→15:21)
[2020-05-28] MEDS ORDERED: METHYLPREDNISOLONE SOD SUCC 125 MG/2ML VIAL IV STA (13:37)
[2020-05-28] MEDS ORDERED: DIPHENHYDRAMINE HCL INJ 50 MG/ML VIAL IV ONE (13:45)
[2020-05-28 14:16] LABS: BASOPHILS # (AUTO) 0.1 (0.0-0.1); BASOPHILS % 0.6 % (0.0-1.0); EOSINOPHILS # (AUTO) 0.1 (0.0-0.4); EOSINOPHILS % 0.4 % (0.0-6.0); HEMATOCRIT 29.7 % (38.2-49.6); HEMOGLOBIN 8.6 g/dL (14.0-18.0); LYMPHOCYTES # (AUTO) 1.1 (1.0-3.2); MEAN CORPUSCULAR HEMOGLOBIN 20.3 pg (28-32); MEAN CORPUSCULAR VOLUME 70.2 fL (81-99); MONOCYTES # (AUTO) 1.3 (0.2-0.8); MONOCYTES % 9.4 % (4.4-11.3); NEUTROPHILS # (AUTO) 11.4 (2.1-6.9); NEUTROPHILS % 80.8 % (38.7-80.0); PLATELET COUNT 649 x10e3/uL (140-360); RED BLOOD COUNT 4.23 x10e6/uL (4.3-5.7); RED CELL DISTRIBUTION WIDTH 20.1 % (11.7-14.4)
[2020-05-28 14:27] LABS: INR 1.39; PARTIAL THROMBOPLASTIN TIME 42.4 seconds (23.8-35.5)
[2020-05-28 14:37] LABS: ALANINE AMINOTRANSFERASE 14 IU/L (0-55); ALBUMIN 1.8 g/dL (3.5-5.0); ALBUMIN/GLOBULIN RATIO 0.4 (0.8-2.0); ALKALINE PHOSPHATASE 97 IU/L (40-150); ANION GAP 17.6 mmol/L (8-16); BLOOD UREA NITROGEN 16 mg/dL (7-26); BUN/CREATININE RATIO 12 (6-25); CARBON DIOXIDE 27 mmol/L (22-29); CHLORIDE 97 mmol/L (98-107); CREATINE KINASE 14 IU/L (30-200); CREATININE, SERUM 1.37 mg/dL (0.72-1.25); EST GLOMERULAR FILTRATION RATE 52 ML/MIN (60-); GLUCOSE 183 mg/dL (74-118); POTASSIUM 3.6 mmol/L (3.5-5.1); SODIUM 138 mmol/L (136-145)
[2020-05-28 14:38] LABS: MAGNESIUM 0.8 MG/DL (1.3-2.1)
[2020-05-28] MEDS ORDERED: MAGNESIUM SULFATE 2GM/50ML 50 ML IV ONE ×2 (14:45→16:30)
[2020-05-28 14:52] LABS: CLARITY,URINE CLOUDY (CLEAR); COLOR,URINE RED (YELLOW); KETONES,URINE NEGATIVE (NEGATIVE); LEUKOCYTE ESTERASE ,URINE SMALL (NEGATIVE); NITRITE,URINE NEGATIVE (NEGATIVE); PROTEIN,URINE DIPSTICK >=300 (NEGATIVE); URINE UROBILINOGEN 0.2 mg/dL (0.2 - 1)
[2020-05-28] MEDS ORDERED: MEROPENEM 1GM 100 ML IV ONE (15:00)
[2020-05-28 15:05] LABS: BACTERIA,URINE MODERATE /HPF; RBC,URINE >50 /HPF (0-5)
[2020-05-28] MEDS ORDERED: ONDANSETRON HCL INJ 2MG/ML 2ML 2 MG/ML VIAL IV PRN (16:45)
[2020-05-28 17:11] LABS: CREATININE,URINE RANDOM 81.56 mg/dL (63-166)
[2020-05-28] MEDS: MEROPENEM 1GM 100 ML IV SCH (17:30)
[2020-05-28] MEDS: SODIUM CHLORIDE 0.9% 1000ML 1,000 ML IV SCH (18:34)
[2020-05-28] MEDS ORDERED: SODIUM CHLORIDE 0.9% 50ML 50 ML ONE (19:43)
[2020-05-28] MEDS ORDERED: IOPAMIDOL 370 MG/ML 200 ML INFUS..BTL INJ ONE (19:44)
[2020-05-28 20:00] VITALS: BP 134/70
[2020-05-28 20:30] VITALS: BP 134/70
[2020-05-28] MEDS: GABAPENTIN 100 MG CAP PO SCH (21:17)
[2020-05-28] MEDS: ATORVASTATIN 10 MG TAB PO SCH (21:17)
[2020-05-28] MEDS: TAMSULOSIN HCL 0.4 MG CAP PO SCH (21:17)
[2020-05-28] MEDS: FAMOTIDINE 20 MG TAB PO SCH (21:17)
[2020-05-28 22:15] LABS: CREATINE KINASE MB 0.3 ng/mL (0-5.0)
[2020-05-29] VITALS (8 sets, daily range): BP systolic 114–131; BP diastolic 62–72
[2020-05-29] MEDS: MEROPENEM 1GM 100 ML IV SCH ×3 (05:18→22:00)
[2020-05-29 06:07] LABS: BASOPHILS % 0.2 % (0.0-1.0); HEMATOCRIT 27.7 % (38.2-49.6); HEMOGLOBIN 8.1 g/dL (14.0-18.0); LYMPHOCYTES # (AUTO) 0.8 (1.0-3.2); LYMPHOCYTES % 6.1 % (18.0-39.1); MEAN CORPUSCULAR HGB CONC 29.2 g/dL (31-35); MEAN CORPUSCULAR VOLUME 71.9 fL (81-99); MONOCYTES # (AUTO) 0.4 (0.2-0.8); NEUTROPHILS # (AUTO) 11.3 (2.1-6.9); NEUTROPHILS % 89.9 % (38.7-80.0); PLATELET COUNT 613 x10e3/uL (140-360); RED BLOOD COUNT 3.85 x10e6/uL (4.3-5.7)
[2020-05-29 06:41] LABS: ALANINE AMINOTRANSFERASE 9 IU/L (0-55); ALBUMIN 1.4 g/dL (3.5-5.0); ALBUMIN/GLOBULIN RATIO 0.3 (0.8-2.0); ALKALINE PHOSPHATASE 83 IU/L (40-150); ANION GAP 15.3 mmol/L (8-16); BLOOD UREA NITROGEN 20 mg/dL (7-26); BUN/CREATININE RATIO 20 (6-25); CALCIUM 8.5 mg/dL (8.4-10.2); CARBON DIOXIDE 26 mmol/L (22-29); CHLORIDE 103 mmol/L (98-107); CREATININE, SERUM 0.99 mg/dL (0.72-1.25); EST GLOMERULAR FILTRATION RATE > 60 ML/MIN (60-); GLUCOSE 197 mg/dL (74-118); POTASSIUM 3.3 mmol/L (3.5-5.1); SODIUM 141 mmol/L (136-145)
[2020-05-29 07:15] LABS: PHOSPHORUS 3.2 MG/DL (2.3-4.7)
[2020-05-29 07:19] LABS: CREATINE KINASE 8 IU/L (30-200); MAGNESIUM 1.1 MG/DL (1.3-2.1)
[2020-05-29 08:29] LABS: HYPOCHROMASIA SLIGHT
[2020-05-29 08:30] LABS: ANISOCYTOSIS MODERATE; PLATELET ESTIMATE MODERATELY INCREASED; POIKILOCYTOSIS SLIGHT; RBC MORPHOLOGY COMMENT ABNORMAL
[2020-05-29 08:31] LABS: PLATELET MORPHOLOGY COMMENT FEW LARGE
[2020-05-29] MEDS ORDERED: MAGNESIUM SULFATE 2GM/50ML 50 ML IV ONE ×2 (08:40→16:00)
[2020-05-29] MEDS: SODIUM CHLORIDE 0.9% 1000ML 1,000 ML IV SCH ×2 (08:54→16:13)
[2020-05-29] MEDS: ALLOPURINOL 300 MG TAB PO SCH (08:54)
[2020-05-29] MEDS: APIXAB 2.5 MG TABLET PO SCH (08:54)
[2020-05-29] MEDS: GABAPENTIN 100 MG CAP PO SCH ×3 (08:54→21:00)
[2020-05-29] MEDS ORDERED: TAMSULOSIN HCL 0.4 MG CAP PO SCH (09:00)
[2020-05-29] MEDS: NON-FORMULARY MEDICATION (Empagliflozin (Jardiance) 10 MG) PO SCH (09:00)
[2020-05-29] MEDS ORDERED: ATORVASTATIN 10 MG TAB PO SCH (09:00)
[2020-05-29] MEDS: INS LISP PRO/LISP HUMAN 75/25 100 UNITS/ML VIAL SC SCH ×2 (09:25→16:49)
[2020-05-29] MEDS ORDERED: POTASSIUM CHLORIDE 20 MEQ TAB CR PO ONE (16:15)
[2020-05-29] MEDS: ATORVASTATIN 10 MG TAB PO SCH (21:00)
[2020-05-29] MEDS: TAMSULOSIN HCL 0.4 MG CAP PO SCH (21:00)
[2020-05-29] MEDS: FAMOTIDINE 20 MG TAB PO SCH (21:00)
[2020-05-29] MEDS: MAGNESIUM OXIDE 400 MG TAB PO SCH (21:00)
[2020-05-30] VITALS (7 sets, daily range): BP systolic 120–141; BP diastolic 66–83
[2020-05-30] MEDS: SODIUM CHLORIDE 0.9% 1000ML 1,000 ML IV SCH ×3 (01:16→18:45)
[2020-05-30 05:41] LABS: BASOPHILS # (AUTO) 0.1 (0.0-0.1); BASOPHILS % 0.3 % (0.0-1.0); EOSINOPHILS % 0.1 % (0.0-6.0); HEMATOCRIT 26.9 % (38.2-49.6); HEMOGLOBIN 7.8 g/dL (14.0-18.0); LYMPHOCYTES # (AUTO) 1.9 (1.0-3.2); LYMPHOCYTES % 10.1 % (18.0-39.1); MEAN CORPUSCULAR HEMOGLOBIN 20.2 pg (28-32); MEAN CORPUSCULAR VOLUME 69.5 fL (81-99); MONOCYTES # (AUTO) 1.2 (0.2-0.8); MONOCYTES % 6.3 % (4.4-11.3); NEUTROPHILS # (AUTO) 15.8 (2.1-6.9); NEUTROPHILS % 82.3 % (38.7-80.0); PLATELET COUNT 663 x10e3/uL (140-360); RED BLOOD COUNT 3.87 x10e6/uL (4.3-5.7)
[2020-05-30 05:58] LABS: ANION GAP 11.3 mmol/L (8-16); BLOOD UREA NITROGEN 25 mg/dL (7-26); BUN/CREATININE RATIO 26 (6-25); CALCIUM 8.8 mg/dL (8.4-10.2); CARBON DIOXIDE 29 mmol/L (22-29); CHLORIDE 106 mmol/L (98-107); CREATININE, SERUM 0.97 mg/dL (0.72-1.25); EST GLOMERULAR FILTRATION RATE > 60 ML/MIN (60-); GLUCOSE 66 mg/dL (74-118); MAGNESIUM 1.5 MG/DL (1.3-2.1); PHOSPHORUS 1.7 MG/DL (2.3-4.7); POTASSIUM 3.3 mmol/L (3.5-5.1); SODIUM 143 mmol/L (136-145)
[2020-05-30] MEDS: MEROPENEM 1GM 100 ML IV SCH ×2 (06:00→14:19)
[2020-05-30] MEDS: NON-FORMULARY MEDICATION (Empagliflozin (Jardiance) 10 MG) PO SCH (08:47)
[2020-05-30] MEDS: MAGNESIUM OXIDE 400 MG TAB PO SCH ×3 (08:56→22:14)
[2020-05-30] MEDS: ALLOPURINOL 300 MG TAB PO SCH (08:56)
[2020-05-30] MEDS: GABAPENTIN 100 MG CAP PO SCH ×2 (08:56→14:21)
[2020-05-30] MEDS: APIXAB 2.5 MG TABLET PO SCH (08:56)
[2020-05-30] MEDS: INS LISP PRO/LISP HUMAN 75/25 100 UNITS/ML VIAL SC SCH ×2 (09:00→16:59)
[2020-05-30] MEDS ORDERED: PIPER-TAZ 3.375 GM 50 ML IV SCH (12:00)
[2020-05-30 15:48] LABS: HIV 1&2 AB SCREEN NON-REACTIVE (NONREACTIVE)
[2020-05-30] MEDS ORDERED: POTASSIUM PHOSPHATE 15 MM in SODIUM CHLORIDE 0.9% 250ML 250 ML IV ONE (17:15)
[2020-05-30] MEDS: ATORVASTATIN 10 MG TAB PO SCH (22:14)
[2020-05-30] MEDS: TAMSULOSIN HCL 0.4 MG CAP PO SCH (22:14)
[2020-05-30] MEDS: FAMOTIDINE 20 MG TAB PO SCH (22:14)
[2020-05-31] VITALS (8 sets, daily range): BP systolic 145–155; BP diastolic 76–90
[2020-05-31 05:42] LABS: BASOPHILS # (AUTO) 0.1 (0.0-0.1); BASOPHILS % 0.6 % (0.0-1.0); EOSINOPHILS # (AUTO) 0.1 (0.0-0.4); EOSINOPHILS % 0.7 % (0.0-6.0); HEMATOCRIT 27.4 % (38.2-49.6); LYMPHOCYTES # (AUTO) 1.9 (1.0-3.2); LYMPHOCYTES % 15.5 % (18.0-39.1); MEAN CORPUSCULAR HEMOGLOBIN 20.7 pg (28-32); MEAN CORPUSCULAR HGB CONC 29.2 g/dL (31-35); MONOCYTES # (AUTO) 1.1 (0.2-0.8); NEUTROPHILS % 73.2 % (38.7-80.0); PLATELET COUNT 619 x10e3/uL (140-360); RED BLOOD COUNT 3.86 x10e6/uL (4.3-5.7); RED CELL DISTRIBUTION WIDTH 20.2 % (11.7-14.4)
[2020-05-31 06:10] LABS: ALANINE AMINOTRANSFERASE 9 IU/L (0-55); ALBUMIN 1.5 g/dL (3.5-5.0); ALBUMIN/GLOBULIN RATIO 0.4 (0.8-2.0); ALKALINE PHOSPHATASE 84 IU/L (40-150); ANION GAP 11.3 mmol/L (8-16); BLOOD UREA NITROGEN 18 mg/dL (7-26); BUN/CREATININE RATIO 21 (6-25); CALCIUM 8.8 mg/dL (8.4-10.2); CARBON DIOXIDE 29 mmol/L (22-29); CHLORIDE 109 mmol/L (98-107); CREATININE, SERUM 0.86 mg/dL (0.72-1.25); EST GLOMERULAR FILTRATION RATE > 60 ML/MIN (60-); GLUCOSE 82 mg/dL (74-118); MAGNESIUM 1.2 MG/DL (1.3-2.1); POTASSIUM 3.3 mmol/L (3.5-5.1); SODIUM 146 mmol/L (136-145)
[2020-05-31] MEDS: SODIUM CHLORIDE 0.9% 1000ML 1,000 ML IV SCH ×2 (08:40→19:50)
[2020-05-31] MEDS: NON-FORMULARY MEDICATION (Empagliflozin (Jardiance) 10 MG) PO SCH (09:00)
[2020-05-31] MEDS: INS LISP PRO/LISP HUMAN 75/25 100 UNITS/ML VIAL SC SCH ×2 (09:00→18:54)
[2020-05-31] MEDS: APIXAB 2.5 MG TABLET PO SCH (09:00)
[2020-05-31] MEDS: ALLOPURINOL 300 MG TAB PO SCH (09:00)
[2020-05-31] MEDS: MAGNESIUM OXIDE 400 MG TAB PO SCH ×3 (09:00→21:26)
[2020-05-31] MEDS ORDERED: POTASSIUM CHLORIDE 20 MEQ TAB CR PO ONE (16:30)
[2020-05-31] MEDS ORDERED: MAGNESIUM SULFATE 2GM/50ML 50 ML IV ONE ×2 (16:30→18:30)
[2020-05-31] MEDS: FAMOTIDINE 20 MG TAB PO SCH (21:26)
[2020-05-31] MEDS: ATORVASTATIN 10 MG TAB PO SCH (21:26)
[2020-05-31] MEDS: TAMSULOSIN HCL 0.4 MG CAP PO SCH (21:26)
[2020-06-01 00:33] VITALS: BP 136/83
[2020-06-01 05:24] VITALS: BP 111/98
[2020-06-01 05:53] LABS: BASOPHILS # (AUTO) 0.1 (0.0-0.1); BASOPHILS % 0.6 % (0.0-1.0); EOSINOPHILS # (AUTO) 0.1 (0.0-0.4); EOSINOPHILS % 0.9 % (0.0-6.0); HEMATOCRIT 29.8 % (38.2-49.6); HEMOGLOBIN 8.4 g/dL (14.0-18.0); LYMPHOCYTES # (AUTO) 1.8 (1.0-3.2); LYMPHOCYTES % 15.7 % (18.0-39.1); MEAN CORPUSCULAR HGB CONC 28.2 g/dL (31-35); MEAN CORPUSCULAR VOLUME 70.8 fL (81-99); MONOCYTES # (AUTO) 0.9 (0.2-0.8); NEUTROPHILS # (AUTO) 8.7 (2.1-6.9); NEUTROPHILS % 74.1 % (38.7-80.0); PLATELET COUNT 626 x10e3/uL (140-360); RED BLOOD COUNT 4.21 x10e6/uL (4.3-5.7)
[2020-06-01 06:02] LABS: BLOOD UREA NITROGEN 17 mg/dL (7-26); BUN/CREATININE RATIO 18 (6-25); CALCIUM 9.3 mg/dL (8.4-10.2); CARBON DIOXIDE 26 mmol/L (22-29); CHLORIDE 104 mmol/L (98-107); CREATININE, SERUM 0.96 mg/dL (0.72-1.25); EST GLOMERULAR FILTRATION RATE > 60 ML/MIN (60-); GLUCOSE 192 mg/dL (74-118); MAGNESIUM 1.2 MG/DL (1.3-2.1); PHOSPHORUS 2.2 MG/DL (2.3-4.7); SODIUM 140 mmol/L (136-145)
[2020-06-01] MEDS ORDERED: MAGNESIUM SULFATE 2GM/50ML 50 ML IV ONE (07:30)
[2020-06-01] MEDS: SODIUM CHLORIDE 0.9% 1000ML 1,000 ML IV SCH ×2 (07:34→10:45)
[2020-06-01 07:53] VITALS: BP 126/75
[2020-06-01 08:45] VITALS: BP 126/75
[2020-06-01] MEDS: INS LISP PRO/LISP HUMAN 75/25 100 UNITS/ML VIAL SC SCH (09:00)
[2020-06-01] MEDS: NON-FORMULARY MEDICATION (Empagliflozin (Jardiance) 10 MG) PO SCH (09:00)
[2020-06-01] MEDS: MAGNESIUM OXIDE 400 MG TAB PO SCH ×2 (09:00→15:00)
[2020-06-01] MEDS: APIXAB 2.5 MG TABLET PO SCH (09:00)
[2020-06-01] MEDS: ALLOPURINOL 300 MG TAB PO SCH (09:00)
[2020-06-01 11:56] VITALS: BP 143/86
[2020-06-01] MEDS ORDERED: PHOSPHORUS 250 MG TAB PO ONE (15:45)
== END 2020-06-01 16:14 | disposition home or self-care (01) | DRG 871 ==
LOC: ER 13:08 → ERHOLD 16:43 → MED/SURG2 20:32
PROVIDERS: ADMIT Family Medicine; ATTEND Family Medicine
DX: A41.9 Sepsis, unspecified organism (principal); G93.41 Metabolic encephalopathy; N17.9 Acute kidney failure, unspecified; N39.0 Urinary tract infection, site not specified; E83.42 Hypomagnesemia; Z20.822 Contact with and (suspected) exposure to COVID-19; I12.9 Hypertensive chronic kidney disease with stage 1 through stage 4 chronic kidney disease, or unspecified chronic kidney disease; E11.22 Type 2 diabetes mellitus with diabetic chronic kidney disease; N18.30 Chronic kidney disease, stage 3 unspecified; E86.9 Volume depletion, unspecified; E87.8 Other disorders of electrolyte and fluid balance, not elsewhere classified; E03.9 Hypothyroidism, unspecified; N28.9 Disorder of kidney and ureter, unspecified; Z86.718 Personal history of other venous thrombosis and embolism; Z79.01 Long term (current) use of anticoagulants; D63.1 Anemia in chronic kidney disease
CPT/HCPCS: 36415; 70450; 71045; 74178; 76770; 80048; 80053; 81001; 82140; 82550; 82553; 82570; 82948; 83605; 83735; 84100; 84300; 84443; 84484; 85025; 85610; 85651; 85730; 86039; 86140; 87040; 87086; 87390; 93005; 99284; G0433; G0435; J1200; J1815; J2930; J3475; J7030; J7050; Q9967; U0002